=== PATIENT | male | born 1965 | race Native Hawaiian/Other Pacific Islander ===

== ENCOUNTER 2019-03-05 11:18 | Emergency (ER) | payer BC ==
[2019-03-05] MEDS ORDERED: hydrALAZINE HCL 20 MG/ML 1 ML VIAL IVP STA ×2 (11:51→13:16)
[2019-03-05] MEDS ORDERED: SODIUM CHLORIDE 0.9% 1,000 ML IV STA (11:51)
[2019-03-05 12:33] LABS: Basophils # (A) 0.1 k/uL (0-0.2); Basophils % (A) 1 %; Eosinophils # (A) 0.2 k/uL (0-0.7); Eosinophils % (A) 2 %; HCT 49.5 % (39.0-53.0); HGB 16.4 gm/dL (13.0-17.5); Lymphocytes # (A) 1.7 k/uL (1.0-4.8); Lymphocytes % (A) 24 %; MCH 29.4 pg (25.0-35.0); MCHC 33.1 g/dL (31.0-37.0); Monocytes # (A) 0.4 k/uL (0-1.0); Monocytes % (A) 6 %; Neutrophils # (A) 4.8 k/uL (1.3-7.7); Neutrophils % (A) 65 %; Platelet Count 442 k/uL (150-450); RBC 5.57 m/uL (4.30-5.90); RDW 12.8 % (11.5-15.5); WBC 7.3 k/uL (3.8-10.6)
--- NOTE | 2019-03-05 12:43 | ED ---
General Adult HPI - General Chief complaint: Recheck/Abnormal Lab/Rx Stated complaint: High BP Time Seen by Provider: 03/05/19 11:38 Source: patient, RN notes reviewed Mode of arrival: ambulatory Limitations: no limitations - History of Present Illness Initial comments: Patient's a 53-year-old male significant past medical history for hypertension, presented to the emergency room today with a chief complaint of elevated blood pressure. He says he woke up this morning felt that his vision was a little foggy. He states his usual so he got up to wash his face. Patient does admit that when he stood up he felt dizzy. He states unsteady on his feet. Patient admits that these symptoms have improved and is feeling better. Decided check his blood pressure at home his blood pressure was elevated with systolic greater than 200/100. Patient does admit that he does not believe that he took his blood pressure medication last night. He states is on losartan and Norvasc. Patient does admit that he did have the blood pressure medication raised a few months ago was still elevated. States he has not been back to his family doctor because his been busy working. Patient does admit to feeling some numbness and tingling sensation down to the left fingertips along with some numbness to the left cheek area. Patient denies any other complaints or symptoms currently. Patient denies any recent fever, chills, shortness of breath, chest pain, back p ain, abdominal pain, nausea or vomiting, numbness or tingling, headaches or visual changes, or any other complaints. - Related Data Home Medications Medication Instructions Recorded Confirmed Aspirin EC [Ecotrin] 325 mg PO DAILY PRN 09/08/16 03/05/19 glipiZIDE [Glucotrol] 10 mg PO HS 09/08/16 03/05/19 metFORMIN HCL [metFORMIN HCL ER] 1,000 mg PO HS 09/08/16 03/05/19 Pioglitazone [Actos] 45 mg PO HS 09/28/17 03/05/19 Losartan [Cozaar] 100 mg PO HS 03/05/19 03/05/19 amLODIPine BESYLATE [Norvasc] 5 mg PO HS 03/05/19 03/05/19 Allergies Allergy/AdvReac Type Severity Reaction Status Date / Time No Known Allergies Allergy Verified 03/05/19 11:55 Review of Systems ROS Statement: Those systems with pertinent positive or pertinent negative responses have been documented in the HPI. ROS Other: All systems not noted in ROS Statement are negative. Past Medical History Past Medical History: Diabetes Mellitus, Hypertension History of Any Multi-Drug Resistant Organisms: None Reported Past Surgical History: No Surgical Hx Reported Additional Past Surgical History / Comment(s): DENTAL PROCEDURES Past Anesthesia/Blood Transfusion Reactions: Motion Sickness Additional Past Anesthesia/Blood Transfusion Reaction / Comment(s): NEVER HAD GENERAL AA Past Psychological History: No Psychological Hx Reported Smoking Status: Former smoker Past Alcohol Use History: Daily Past Drug Use History: None Reported - Past Family History Mother Family Medical History: Hypertension Additional Family Medical History / Comment(s): MIGRAINES Father Additional Family Medical History / Comment(s): DID FROM A BRAIN ANUERYSM Sister(s) Additional Family Medical History / Comment(s): PTS. SISTER ALSO FROM AN ANUERYSM General Exam - General Exam Comments Initial Comments: General: The patient is awake and alert, in no distress, and does not appear acutely ill. Eye: Pupils are equal, round and reactive to light, extra-ocular movements are intact. No nystagmus. There is normal conjunctiva bilaterally. No signs of icterus. Ears, nose, mouth and throat: There are moist mucous membranes and no oral le sions. Neck: The neck is supple, there is no tenderness or JVD. Cardiovascular: There is a regular rate and rhythm. No murmur, rub or gallop is appreciated. Respiratory: Lungs are clear to auscultation, respirations are non-labored, breath sounds are equal. No wheezes, stridor, rales, or rhonchi. Musculoskeletal: Normal ROM, no tenderness. Strength 5/5. Sensation intact. Pulses equal bilaterally 2+. Neurological: A&O x 3. CN II-XII intact, There are no obvious motor or sensory deficits. Coordination appears grossly intact. Speech is normal. Normal finger to nose testing. Normal rapid alternating movements. Strength 5/5 bilaterally in both upper and lower extremities. Normal gait. Normal tandem walking. Negative Romberg's. Skin: Skin is warm and dry and no rashes or lesions are noted. Psychiatric: Cooperative, appropriate mood & affect, normal judgment. Limitations: no limitations Course Vital Signs 03/05/19 03/05/19 03/05/19 11:34 12:30 13:00 Temperature 98.1 F Pulse Rate 76 73 Respiratory 20 Rate Blood Pressure 222/137 208/154 196/120 O2 Sat by Pulse 99 98 Oximetry 03/05/19 03/05/19 03/05/19 13:08 13:30 14:00 Temperature Pulse Rate 76 80 75 Respiratory 18 Rate Blood Pressure 197/106 193/107 226/117 O2 Sat by Pulse 98 98 98 Oximetry 03/05/19 03/05/19 14:30 14:43 Temperature Pulse Rate 92 Respiratory 18 Rate Blood Pressure 212/110 174/98 O2 Sat by Pulse 98 Oximetry EKG Findings - EKG Comments: EKG Findings:: EKG performed at 427: Shows normal sinus rhythm at 74 bpm. AR interval 180. QRS 82. QT/QTC 388/430. No acute ST change. Medical Decision Making - Medical Decision Making Case discussed in detail with attending physician Dr. Donovan. Patient was given 2 doses of hydralazine which didn't improve his blood pressure. Patient's blood pressure remained somewhat elevated was given dose of labetalol which improved his blood pressure is currently 170/96. Patient reexamined at the central no signs of distress. Patient's blood pressure has improved. Patient states all symptoms have improved. Patient states is been up to the bathroom said no dizziness. Is feeling better at this time. Patient will be discharged home. He is advised to follow-up the family doctor advised take his blood pressure medication tonight. Patient states he plans to see his doctor tomorrow. Advised return here to the emergency room if any symptoms increase or worsen or for any other concerns. - Lab Data Result diagrams: 03/05/19 12:15 03/05/19 12:15 Lab Results 03/05/19 03/05/19 03/05/19 Range/Units 12:15 12:15 12:15 WBC 7.3 (3.8-10.6) k/uL RBC 5.57 (4.30-5.90) m/uL Hgb 16.4 (13.0-17.5) gm/dL Hct 49.5 (39.0-53.0) % MCV 89.0 (80.0-100.0) fL MCH 29.4 (25.0-35.0) pg MCHC 33.1 (31.0-37.0) g/dL RDW 12.8 (11.5-15.5) % Plt Count 442 (150-450) k/uL Neutrophils % 65 % Lymphocytes % 24 % Monocytes % 6 % Eosinophils % 2 % Basophils % 1 % Neutrophils # 4.8 (1.3-7.7) k/uL Lymphocytes # 1.7 (1.0-4.8) k/uL Monocytes # 0.4 (0-1.0) k/uL Eosinophils # 0.2 (0-0.7) k/uL Basophils # 0.1 (0-0.2) k/uL Sodium 138 (137-145) mmol/L Potassium 4.2 (3.5-5.1) mmol/L Chloride 101 (98-107) mmol/L Carbon Dioxide 24 (22-30) mmol/L Anion Gap 13 mmol/L BUN 14 (9-20) mg/dL Creatinine 1.19 (0.66-1.25) mg/dL Est GFR (CKD-EPI)AfAm 80 (>60 ml/min/1.73 sqM) Est GFR (CKD-EPI)NonAf 69 (>60 ml/min/1.73 sqM) Glucose 332 H (74-99) mg/dL Calcium 10.3 H (8.4-10.2) mg/dL Total Bilirubin 0.6 (0.2-1.3) mg/dL AST 21 (17-59) U/L ALT 16 L (21-72) U/L Alkaline Phosphatase 127 H (38-126) U/L Troponin I <0.012 (0.000-0.034) ng/mL Total Protein 8.3 H (6.3-8.2) g/dL Albumin 4.7 (3.5-5.0) g/dL Disposition Clinical Impression: Elevated blood pressure reading, Paresthesia Disposition: HOME SELF-CARE Condition: Good Instructions (If sedation given, give patient instructions): Hypertension (ED) Additional Instructions: Please use your blood pressure medication tonight as discussed and follow-up the family doctor tomorrow. Return here to emergency room if any symptoms increase worsen or for any other concerns. Is patient prescribed a controlled substance at d/c from ED?: No Referrals: Sydnie Mensah MD [Primary Care Provider] - 1-2 days Time of Disposition: 14:58
[2019-03-05 12:49] LABS: Albumin 4.7 g/dL (3.5-5.0); Calcium 10.3 mg/dL (8.4-10.2); Potassium 4.2 mmol/L (3.5-5.1); Total Bilirubin 0.6 mg/dL (0.2-1.3); Total Protein 8.3 g/dL (6.3-8.2)
[2019-03-05 13:10] VITALS: RESP 18
--- NOTE | 2019-03-05 13:12 | CT ---
EXAMINATION TYPE: CT brain wo con DATE OF EXAM: 03/05/2019 COMPARISON: 09/28/2017 HISTORY: Hypertension, visual disturbance. Pt states he thinks he forgot to take blood pressure medic ine last night. CT DLP: 1070.4 mGycm. Automated Exposure Control for Dose Reduction was Utilized. TECHNIQUE: CT scan of the head is performed without contrast. FINDINGS: There is no acute intracranial hemorrhage, mass effect, or midline shift identified. Dyst rophic calcifications of the bilateral basal ganglia are incidentally noted. The ventricles and sulci are within normal limits in size. Very minimal periventricular hypoattenuation is seen of the fronta l horns of the lateral ventricles. Left parietal patchy area of hypoattenuation is also seen within t he [facility] [facility]. The globes are intact and the visualized sinuses are clear. IMPRESSION: 1. No acute intracranial hemorrhage, mass effect, or midline shift is seen. 2. Mild burden nonspecific white matter change, likely on the basis of chronic microangiopathy.
[2019-03-05] MEDS ORDERED: LABETALOL SYRINGE 5 MG/ML IVP STA (14:17)
[2019-03-05 15:15] VITALS: BP 177/93; PULSE 77; TEMP 97.8
== END 2019-03-05 15:14 | disposition home or self-care (01) ==
LOC: EC 11:18
DX: I10 Essential (primary) hypertension (principal); R20.2 Paresthesia of skin; E11.9 Type 2 diabetes mellitus without complications; Z79.84 Long term (current) use of oral hypoglycemic drugs; Z79.82 Long term (current) use of aspirin; Z79.899 Other long term (current) drug therapy; Z87.891 Personal history of nicotine dependence
CPT/HCPCS: 36415; 93005; 80053; 84484; 85025; 70450; 99284; 96374; 96375; 96376; 96361 ×2; J0360

== ENCOUNTER → 2019-04-08 | Outpatient (CLI) | payer BC | END | disposition home or self-care (01) | LOC: LABWHC1 17:05 | PROVIDERS: ATTEND Urology | DX: R97.20 Elevated prostate specific antigen [PSA] (principal) | CPT/HCPCS: 36415; 84153; 84154 ==

== ENCOUNTER 2020-07-29 21:50 | Inpatient (IN) | payer BC, OTHER ==
[2020-07-29] MEDS ORDERED: IPRATROPIUM-ALBUTEROL 3 ML NEB INHALATION STA (22:00)
--- NOTE | 2020-07-29 22:01 | ED ---
SOB HPI - General Chief Complaint: Shortness of Breath Stated Complaint: SOB Time Seen by Provider: 07/29/20 22:00 Source: patient, RN notes reviewed, old records reviewed Mode of arrival: ambulatory Limitations: no limitations - History of Present Illness Initial Comments: This is a 34-year-old male DF for evaluation severe shortness of breath and inab ility to get deep breath feels like his for fluid feels that his belly is fluid/fluid his legs are for facility can't catch his breath. Patient has history of high blood pressure heart disease history of alcoholism. No travel history or sick contacts patient is does not feel well active low severely diminished but no chest pain MD Complaint: shortness of breath -: days(s), month(s) Severity: mild Severity scale (1-10): 3 Consistency: constant Improves With: nothing, rest Worsens With: exertion, movement, coughing Known History Of: congestive heart failure Associated Symptoms: orthopnea, palpitations, diaphoresis Treatments Prior to Arrival: none - Related Data Home Medications Medication Instructions Recorded Confirmed No Known Home Medications 07/29/20 07/29/20 Allergies Allergy/AdvReac Type Severity Reaction Status Date / Time No Known Allergies Allergy Verified 07/29/20 23:27 Review of Systems ROS Statement: Those systems with pertinent positive or pertinent negative responses have been documented in the HPI. ROS Other: All systems not noted in ROS Statement are negative. Past Medical History Past Medical History: Diabetes Mellitus, Hypertension History of Any Multi-Drug Resistant Organisms: None Reported Past Surgical History: No Surgical Hx Reported Additional Past Surgical History / Comment(s): DENTAL PROCEDURES Past Anesthesia/Blood Transfusion Reactions: Motion Sickness Additional Past Anesthesia/Blood Transfusion Reaction / Comment(s): NEVER HAD GENERAL AA Past Psychological History: No Psychological Hx Reported Smoking Status: Never smoker Past Alcohol Use History: Daily Past Drug Use History: Marijuana - Past Family History Mother Family Medical History: Hypertension Additional Family Medical History / Comment(s): MIGRAINES Father Additional Family Medical History / Comment(s): DID FROM A BRAIN ANUERYSM Sister(s) Additional Family Medical History / Comment(s): PTS. SISTER ALSO FROM AN ANUERYSM General Exam Limitations: no limitations General appearance: alert, in no apparent distress, anxious Head exam: Present: atraumatic, normocephalic, normal inspection Eye exam: Present: normal appearance, PERRL, EOMI. Absent: scleral icterus, conjunctival injection, periorbital swelling ENT exam: Present: normal exam, mucous membranes moist Neck exam: Present: normal inspection. Absent: tenderness, meningismus, lymphadenopathy Respiratory exam: Present: rales, accessory muscle use, decreased breath sounds, prolonged expiratory. Absent: respiratory distress, wheezes, rhonchi, stridor Cardiovascular Exam: Present: normal rhythm, tachycardia, normal heart sounds. Absent: systolic murmur, diastolic murmur, rubs, gallop, clicks GI/Abdominal exam: Present: soft, normal bowel sounds. Absent: distended, ten derness, guarding, rebound, rigid Extremities exam: Present: normal inspection, full ROM, normal capillary refill. Absent: tenderness, pedal edema, joint swelling, calf tenderness Back exam: Present: normal inspection Neurological exam: Present: alert, oriented X3, CN II-XII intact Psychiatric exam: Present: normal affect, normal mood Skin exam: Present: warm, dry, intact, normal color. Absent: rash Course Vital Signs 07/29/20 07/29/20 07/29/20 21:53 22:15 22:21 Temperature 98.0 F Pulse Rate 118 H 72 74 Respiratory 24 Rate Blood Pressure 208/127 O2 Sat by Pulse 96 Oximetry 07/29/20 07/29/20 07/30/20 22:44 22:48 00:00 Temperature Pulse Rate 115 H 107 H Respiratory 22 18 22 Rate Blood Pressure 190/136 173/121 O2 Sat by Pulse 97 99 Oximetry 07/30/20 07/30/20 00:15 00:30 Temperature 98.2 F Pulse Rate 79 80 Respiratory 16 18 Rate Blood Pressure 141/105 143/112 O2 Sat by Pulse 98 99 Oximetry - Reevaluation(s) Reevaluation #1: Medical record is reviewed Patient is reevaluated in no distress no significant shortness of breath on oxygen Patient denies current chest pain Patient informed of results and questions answered Medical Decision Making - Medical Decision Making 34 male with significant history of heart disease hypertensive emergency severely elevated blood pressure elevated troponin. Patient will be admitted for hemodynamic monitoring of cardiac evaluation - Lab Data Result diagrams: 07/30/20 03:37 07/30/20 03:37 Lab Results 07/29/20 07/29/20 07/29/20 Range/Units 22:29 22:29 22:29 WBC 10.5 (3.8-10.6) k/uL RBC 5.14 (4.30-5.90) m/uL Hgb 15.6 (13.0-17.5) gm/dL Hct 47.2 (39.0-53.0) % MCV 91.9 (80.0-100.0) fL MCH 30.4 (25.0-35.0) pg MCHC 33.1 (31.0-37.0) g/dL RDW 12.6 (11.5-15.5) % Plt Count 468 H (150-450) k/uL Neutrophils % 75 % Lymphocytes % 18 % Monocytes % 4 % Eosinophils % 2 % Basophils % 1 % Neutrophils # 7.9 H (1.3-7.7) k/uL Lymphocytes # 1.8 (1.0-4.8) k/uL Monocytes # 0.4 (0-1.0) k/uL Eosinophils # 0.2 (0-0.7) k/uL Basophils # 0.1 (0-0.2) k/uL PT 9.7 (9.0-12.0) sec INR 0.9 (<1.2) APTT 25.8 (22.0-30.0) sec Sodium 132 L (137-145) mmol/L Potassium 4.0 (3.5-5.1) mmol/L Chloride 101 (98-107) mmol/L Carbon Dioxide 21 L (22-30) mmol/L Anion Gap 10 mmol/L BUN 18 (9-20) mg/dL Creatinine 0.99 (0.66-1.25) mg/dL Est GFR (CKD-EPI)AfAm >90 (>60 ml/min/1.73 sqM) Est GFR (CKD-EPI)NonAf 85 (>60 ml/min/1.73 sqM) Glucose 431 H (74-99) mg/dL Plasma Lactic Acid Sam (0.7-2.0) mmol/L Calcium 9.8 (8.4-10.2) mg/dL Magnesium 2.0 (1.6-2.3) mg/dL Total Bilirubin 0.8 (0.2-1.3) mg/dL AST 35 (17-59) U/L ALT 23 (4-49) U/L Alkaline Phosphatase 170 H (38-126) U/L Troponin I (0.000-0.034) ng/mL NT-Pro-B Natriuret Pep pg/mL Total Protein 7.4 (6.3-8.2) g/dL Albumin 3.9 (3.5-5.0) g/dL 07/29/20 07/29/20 07/29/20 Range/Units 22:29 22:29 22:29 WBC (3.8-10.6) k/uL RBC (4.30-5.90) m/uL Hgb (13.0-17.5) gm/dL Hct (39.0-53.0) % MCV (80.0-100.0) fL MCH (25.0-35.0) pg MCHC (31.0-37.0) g/dL RDW (11.5-15.5) % Plt Count (150-450) k/uL Neutrophils % % Lymphocytes % % Monocytes % % Eosinophils % % Basophils % % Neutrophils # (1.3-7.7) k/uL Lymphocytes # (1.0-4.8) k/uL Monocytes # (0-1.0) k/uL Eosinophils # (0-0.7) k/uL Basophils # (0-0.2) k/uL PT (9.0-12.0) sec INR (<1.2) APTT (22.0-30.0) sec Sodium (137-145) mmol/L Potassium (3.5-5.1) mmol/L Chloride (98-107) mmol/L Carbon Dioxide (22-30) mmol/L Anion Gap mmol/L BUN (9-20) mg/dL Creatinine (0.66-1.25) mg/dL Est GFR (CKD-EPI)AfAm (>60 ml/min/1.73 sqM) Est GFR (CKD-EPI)NonAf (>60 ml/min/1.73 sqM) Glucose (74-99) mg/dL Plasma Lactic Acid Sam 1.4 (0.7-2.0) mmol/L Calcium (8.4-10.2) mg/dL Magnesium (1.6-2.3) mg/dL Total Bilirubin (0.2-1.3) mg/dL AST (17-59) U/L ALT (4-49) U/L Alkaline Phosphatase (38-126) U/L Troponin I 1.850 H* (0.000-0.034) ng/mL NT-Pro-B Natriuret Pep 8660 pg/mL Total Protein (6.3-8.2) g/dL Albumin (3.5-5.0) g/dL - EKG Data -: EKG Interpreted by Me (EKG is sinus tachycardia 110 MN 166 QRS 82 QTC 470) - Radiology Data Radiology results: report reviewed (Chest x-rays positive for CHF), image reviewed Critical Care Time Critical Care Time: Yes Total Critical Care Time: 31 Disposition Clinical Impression: Congestive heart failure, Weakness, Hypertensive urgency, Hypertension, Hypertensive emergency, Acute pulmonary edema, NSTEMI (non-ST elevated myocardial infarction) Disposition: ADMITTED IP TO THIS HOSP Condition: Fair
[2020-07-29 22:45] LABS: Basophils # (A) 0.1 k/uL (0-0.2); Basophils % (A) 1 %; Eosinophils # (A) 0.2 k/uL (0-0.7); Eosinophils % (A) 2 %; HCT 47.2 % (39.0-53.0); HGB 15.6 gm/dL (13.0-17.5); Lymphocytes # (A) 1.8 k/uL (1.0-4.8); Lymphocytes % (A) 18 %; MCH 30.4 pg (25.0-35.0); MCHC 33.1 g/dL (31.0-37.0); MCV 91.9 fL (80.0-100.0); Mean Platelet Volume 7.8; Monocytes # (A) 0.4 k/uL (0-1.0); Monocytes % (A) 4 %; Neutrophils # (A) 7.9 k/uL (1.3-7.7); Neutrophils % (A) 75 %; Platelet Count 468 k/uL (150-450); RBC 5.14 m/uL (4.30-5.90); RDW 12.6 % (11.5-15.5); WBC 10.5 k/uL (3.8-10.6)
[2020-07-29] MEDS ORDERED: FUROSEMIDE 10 MG/ML 4 ML VIAL IV STA (22:52)
[2020-07-29] MEDS ORDERED: LABETALOL 5 MG/ML VIAL MDV IVP STA (22:52)
[2020-07-29 22:53] LABS: INR 0.9 (<1.2); Partial Thromboplastin Time 25.8 sec (22.0-30.0); Prothrombin Time 9.7 sec (9.0-12.0)
[2020-07-29 22:58] LABS: ALT 23 U/L (4-49); AST 35 U/L (17-59); African American GFR (CKD) >90 (>60 ml/min/1.73 sqM); Albumin 3.9 g/dL (3.5-5.0); Alkaline Phosphatase 170 U/L (38-126); Anion Gap 10 mmol/L; Blood Urea Nitrogen 18 mg/dL (9-20); Calcium 9.8 mg/dL (8.4-10.2); Carbon Dioxide 21 mmol/L (22-30); Chloride 101 mmol/L (98-107); Glucose 431 mg/dL (74-99); Non-African American GFR(CKD) 85 (>60 ml/min/1.73 sqM); Sodium 132 mmol/L (137-145); Total Bilirubin 0.8 mg/dL (0.2-1.3); Total Protein 7.4 g/dL (6.3-8.2)
[2020-07-29] MEDS ORDERED: HEPARIN SODIUM,PORCINE 5,000 UNIT/ML 1 ML VIAL IV ONE (23:12)
[2020-07-29] MEDS ORDERED: FUROSEMIDE 10 MG/ML 4 ML VIAL IV SCH (23:15)
--- NOTE | 2020-07-29 23:49 | XR ---
EXAMINATION TYPE: XR abdomen acute w cxr DATE OF EXAM: 07/29/2020 COMPARISON: NONE HISTORY: Pain TECHNIQUE: 3 views FINDINGS: There is no sign of intestinal obstruction or pneumoperitoneum. Fecal pattern is normal. Th ere is no evidence of a mass. There are no pathologic calcifications. There are bilateral pleural effusions and patchy infiltrates in the lower lung [place]. There is mild pulmonary congestion. Heart size is fairly normal. IMPRESSION: Nonacute abdomen. Pleural effusions and bilateral patchy pneumonia. Congestive heart fail ure not excluded.
[2020-07-30] MEDS: HEPARIN SOD,PORK IN 0.45% NACL 25,000 UNIT in 0.45% NACL 1 250ML.BAG IV SCH ×2 (00:17→14:50)
[2020-07-30 00:52] LABS: Glucose,Whole Blood 377 mg/dL (75-99)
[2020-07-30 04:13] LABS: Basophils # (A) 0.1 k/uL (0-0.2); Basophils % (A) 1 %; Eosinophils # (A) 0.1 k/uL (0-0.7); Eosinophils % (A) 1 %; HCT 42.3 % (39.0-53.0); HGB 13.8 gm/dL (13.0-17.5); Lymphocytes # (A) 1.7 k/uL (1.0-4.8); Lymphocytes % (A) 22 %; MCH 30.1 pg (25.0-35.0); MCHC 32.6 g/dL (31.0-37.0); MCV 92.3 fL (80.0-100.0); Mean Platelet Volume 7.9; Monocytes # (A) 0.4 k/uL (0-1.0); Monocytes % (A) 5 %; Neutrophils # (A) 5.6 k/uL (1.3-7.7); Neutrophils % (A) 71 %; Platelet Count 397 k/uL (150-450); RBC 4.58 m/uL (4.30-5.90); RDW 12.5 % (11.5-15.5); WBC 7.9 k/uL (3.8-10.6)
[2020-07-30 04:20] LABS: Partial Thromboplastin Time 41.3 sec (22.0-30.0); Prothrombin Time 10.1 sec (9.0-12.0)
[2020-07-30 04:25] LABS: ALT 22 U/L (4-49); AST 49 U/L (17-59); African American GFR (CKD) >90 (>60 ml/min/1.73 sqM); Albumin 3.3 g/dL (3.5-5.0); Alkaline Phosphatase 142 U/L (38-126); Anion Gap 7 mmol/L; Blood Urea Nitrogen 18 mg/dL (9-20); Carbon Dioxide 26 mmol/L (22-30); Chloride 100 mmol/L (98-107); Glucose 372 mg/dL (74-99); Non-African American GFR(CKD) 81 (>60 ml/min/1.73 sqM); Potassium 3.7 mmol/L (3.5-5.1); Sodium 133 mmol/L (137-145); Total Bilirubin 0.8 mg/dL (0.2-1.3); Total Protein 6.3 g/dL (6.3-8.2)
[2020-07-30] MEDS: HEPARIN SODIUM,PORCINE 5,000 UNIT/ML 1 ML VIAL IV PRN ×2 (05:09→22:08)
[2020-07-30 06:59] LABS: Glucose,Whole Blood 343 mg/dL (75-99)
[2020-07-30] MEDS: INSULIN ASPART (NovoLOG) 100 UNIT/ML VIAL SQ SCH ×4 (07:10→21:42)
[2020-07-30] MEDS ORDERED: NITROGLYCERIN-D5W PMX 50 MG in DEXTROSE/WATER 1 250ML.BAG IV SCH (08:30)
--- NOTE | 2020-07-30 09:23 | XR ---
EXAMINATION TYPE: XR chest 1V DATE OF EXAM: 07/30/2020 CLINICAL HISTORY: Shortness of breath and cough. TECHNIQUE: Single AP portable frontal upright view of the chest is obtained. COMPARISON: Chest x-ray from yesterday end older x-rays. FINDINGS: There are stable small bilateral pleural effusions. There are persistent perihilar and bib asilar opacities. The cardiac silhouette size remains within normal limits. The osseous structures are intact. IMPRESSION: Overall stable findings, small bilateral pleural effusions. Bilateral perihilar and lower lung edema and/or infiltrates redemonstrated.
[2020-07-30] MEDS: FUROSEMIDE 10 MG/ML 4 ML VIAL IV SCH ×2 (09:25→14:55)
[2020-07-30] MEDS: METOPROLOL TARTRATE 25 MG TAB PO SCH ×2 (09:27→21:39)
[2020-07-30] MEDS: lisinopriL 5 MG TAB PO SCH (09:27)
[2020-07-30] MEDS: ASPIRIN 81 MG PO SCH (09:28)
[2020-07-30] MEDS: ATORVASTATIN 40 MG TAB PO SCH (09:28)
[2020-07-30] MEDS ORDERED: ALPRAZolam 0.5 MG TAB PO PRN (09:45)
[2020-07-30] MEDS ORDERED: SODIUM CHLORIDE 0.9% 1,000 ML in EMPTY BAG 1 BAG IV ONE (09:45)
[2020-07-30] MEDS ORDERED: NITROGLYCERIN SL TABS 0.4 MG TAB SUBLINGUAL PRN ×2 (09:45→11:58)
[2020-07-30] MEDS ORDERED: ASPIRIN 81 MG PO STA (09:45)
[2020-07-30] MEDS ORDERED: ALPRAZolam 0.25 MG TAB PO PRN (09:45)
[2020-07-30] MEDS ORDERED: LIDOCAINE 1% INJ 10MG/ML (20 ML MDV) ONE (10:00)
[2020-07-30] MEDS ORDERED: VERAPAMIL 2.5 MG/ML 2 ML AMP ONE (10:27)
[2020-07-30] MEDS ORDERED: ASPIRIN 81 MG ONE (10:27)
[2020-07-30] MEDS ORDERED: HEPARIN SODIUM 1,000 UN/ML (10ML VL) ONE (10:28)
[2020-07-30] MEDS ORDERED: fentaNYL (PF) 50 MCG/ML 2 ML AMP ONE (10:28)
--- NOTE | 2020-07-30 10:33 | P.CRDCN ---
History of Present Illness History of present illness: has been feeling short of breath for the previous 3 weeks. orthopnea and unable to sleep for the last 2 days so came to er for evaluation. no chest pain. HISTORY OF PRESENTING ILLNESS This is a pleasant 54-year-old male past medical history significant for hypertension, diabetes mellitus, former nicotine dependence and history of medical noncompliance. 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 He last saw Dr. Ramos in April 2016. At that time he was recommended for stress test and echocardiogram but never came back to the office. He did have an echo done in the hospital 08/2016 revealing impaired LV systolic function with EF 40-45%, possible infiltrative cardiomyopathy. He states his blood pressure and diabetic medication were making him feel increasingly tired so he stopped taking them around February of this year. For the past 3 weeks he has been experiencing increased shortness of breath. Initially he felt like he just had to take a break every once in awhile but it has been getting progressively worse. For the last 2 nights he has not been able to lay flat or get any sleep. He is coughing when he lays flat and short of breath. He also feels like his abdomen is bloated and full not allowing him to take a deep breath. He denies chest pain, dizziness, nausea, vomiting or palpitations. In the emergency department he was initiated on a heparin infusion and given IV labetalol. No aspirin was administered. DIAGNOSTICS EKG reveals sinus tachycardia heart rate 110, T-wave inversion laterally and inferiorly. Poor R-wave progression and left atrial enlargement. Chest xray small bilateral pleural effusions. Laboratory reviewed, WBC 7.9, hemoglobin 13.8, platelets 397, sodium 133, potassium 3.7, creatinine 1.04 with a GFR of 81, magnesium 2.0, alkaline phosphatase 142, troponin 1.85, 2.42 and 6.36. We requested a stat repeat during her examination and that level came back at 29, NT proBNP 8660. REVIEW OF SYSTEMS At the time of my exam: CONSTITUTIONAL: Denies fever or chills. CARDIOVASCULAR: Denies chest pain, shortness of breath, orthopnea, PND or palpitations. RESPIRATORY: Denies cough. GASTROINTESTINAL: Denies abdominal pain, diarrhea, constipation, nausea or vomiting. MUSCULOSKELETAL: Denies myalgias. NEUROLOGIC: Denies numbness, tingling or weakness. ENDOCRINE: Denies fatigue, weight change, polydipsia or polyurina. GENITOURINARY: Denies burning, hematuria or urgency with micturation. HEMATOLOGIC: Denies history of anemia or bleeding. PHYSICAL EXAMINATION Blood pressure 145/102 heart rate 93 afebrile and maintaining oxygen saturation on nasal cannula. CONSTITUTIONAL: No apparent distress. HEENT: Head is normocephalic. Pupils are equal, round. Sclerae anicteric. Mucous membranes of the mouth are moist. No JVD. No carotid bruit. CHEST EXAMINATION: Tachypneic, bibasrilar rales, no wheezes or rhonchi. No chest wall tenderness is noted on palpation or with deep breathing. HEART EXAMINATION: Regular rate and rhythm. S1, S2 heard. No murmurs, gallops or rub. ABDOMEN: Soft, nontender. Positive bowel sounds. EXTREMITIES: 2+ peripheral pulses, no lower extremity edema and no calf tenderness. NEUROLOGIC EXAMINATION: Patient is awake, alert and oriented x3. 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 Will update after catheterization Chronic systolic heart failure, non-compliant with medications Non-compliance History of alcohol use, pt states every week, not daily PLAN Echocardiogram obtained and briefly reviewed at the bedside, LV function has significantly worsened from previously. Recommend proceeding with cardiac catheterization. I have discussed the risks, benefits and alternative therapies for the above-mentioned procedure and for both sedation/analgesia as well as necessary blood product administration, if indicated, as they pertain to this patient. The patient has indicated understanding and acceptance of the risks and procedures discussed. Questions have been answered appropriately and he is agreeable to move forward with the above-stated procedure. Initiate nitro infusion and titrate for blood pressure. Initiate lisinopril 5 mg daily, atorvastatin 40 mg daily, aspirin 81 mg daily and continue Lopressor 25 mg twice a day as previously ordered in the emergency center. Further recommendations to follow based upon clinical course. Thank you kindly for this consultation. Nurse Practitioner note has been reviewed, I agree with a documented findings and plan of care. Patient was seen and examined. Past Medical History Past Medical History: Diabetes Mellitus, Hypertension History of Any Multi-Drug Resistant Organisms: None Reported Past Surgical History: No Surgical Hx Reported Additional Past Surgical History / Comment(s): DENTAL PROCEDURES Past Anesthesia/Blood Transfusion Reactions: Motion Sickness Additional Past Anesthesia/Blood Transfusion Reaction / Comment(s): NEVER HAD GENERAL AA Past Psychological History: No Psychological Hx Reported Smoking Status: Never smoker Past Alcohol Use History: Daily Additional Past Alcohol Use History / Comment(s): PT. STATES HE HAS CIGARS OCCASSIONALLY Past Drug Use History: Marijuana - Past Family History Mother Family Medical History: Hypertension Additional Family Medical History / Comment(s): MIGRAINES Father Additional Family Medical History / Comment(s): DID FROM A BRAIN ANUERYSM Sister(s) Additional Family Medical History / Comment(s): PTS. SISTER ALSO FROM AN ANUERYSM Medications and Allergies Home Medications Medication Instructions Recorded Confirmed Type No Known Home Medications 07/29/20 07/29/20 History Allergies Allergy/AdvReac Type Severity Reaction Status Date / Time No Known Allergies Allergy Verified 07/29/20 23:27 Physical Exam Vitals: Vital Signs Temp Pulse Resp BP Pulse Ox 07/30/20 07:00 91 28 H 97 07/30/20 06:00 86 24 140/105 97 07/30/20 05:00 84 13 129/92 98 07/30/20 04:00 98 F 82 13 129/92 97 07/30/20 03:00 82 14 135/103 97 07/30/20 02:00 85 24 144/109 96 07/30/20 01:00 97.8 F 82 27 H 148/118 98 07/30/20 00:30 98.2 F 80 18 143/112 99 07/30/20 00:15 79 16 141/105 98 07/30/20 00:00 107 H 22 173/121 99 07/29/20 22:48 115 H 18 190/136 97 07/29/20 22:44 22 07/29/20 22:21 74 07/29/20 22:15 72 07/29/20 21:53 98.0 F 118 H 24 208/127 96 Intake and Output 07/29/20 07/30/20 07/30/20 22:59 06:59 14:59 Intake Total 378.805 Output Total 700 Balance -321.195 Intake: IV 140 0.9 NS @KVO 140 Intake, IV Titration 38.805 Amount Heparin Sod,Pork in 0.45% 38.805 NaCl 25,000 unit In 0.45 % NaCl 1 250ml.bag @ 12 UNITS/KG/HR 8.001 mls/hr IV .Q24H [facility] Rx#: [id number] Oral 200 Output: Urine 700 Other: Weight 66.678 kg 70.5 kg Results 07/30/20 03:37 07/30/20 03:37 Cardiac Enzymes 07/29/20 07/29/20 07/29/20 Range/Units 22:29 22:29 23:51 AST 35 (17-59) U/L Troponin I 1.850 H* 2.420 H* (0.000-0.034) ng/mL 07/30/20 07/30/20 Range/Units 02:04 03:37 AST 49 (17-59) U/L Troponin I 6.360 H* (0.000-0.034) ng/mL Coagulation 07/29/20 07/30/20 Range/Units 22:29 03:37 PT 9.7 10.1 (9.0-12.0) sec APTT 25.8 41.3 H (22.0-30.0) sec CBC 07/29/20 07/30/20 Range/Units 22:29 03:37 WBC 10.5 7.9 (3.8-10.6) k/uL RBC 5.14 4.58 (4.30-5.90) m/uL Hgb 15.6 13.8 (13.0-17.5) gm/dL Hct 47.2 42.3 (39.0-53.0) % Plt Count 468 H 397 (150-450) k/uL Comprehensive Metabolic Panel 07/29/20 07/30/20 Range/Units 22:29 03:37 Sodium 132 L 133 L (137-145) mmol/L Potassium 4.0 3.7 (3.5-5.1) mmol/L Chloride 101 100 (98-107) mmol/L Carbon Dioxide 21 L 26 (22-30) mmol/L BUN 18 18 (9-20) mg/dL Creatinine 0.99 1.04 (0.66-1.25) mg/dL Glucose 431 H 372 H (74-99) mg/dL Calcium 9.8 9.0 (8.4-10.2) mg/dL AST 35 49 (17-59) U/L ALT 23 22 (4-49) U/L Alkaline Phosphatase 170 H 142 H (38-126) U/L Total Protein 7.4 6.3 (6.3-8.2) g/dL Albumin 3.9 3.3 L (3.5-5.0) g/dL Current Medications Generic Name Dose Route Start Last Admin Trade Name Freq PRN Reason Stop Dose Admin Aspirin 81 mg 07/30/20 09:00 Aspirin 81 Mg PO DAILY [facility] Atorvastatin Calcium 40 mg 07/30/20 09:00 Atorvastatin 40 Mg Tab PO DAILY [facility] Furosemide 40 mg 07/30/20 08:00 Furosemide 10 Mg/Ml 4 Ml Vial IV 0000,0800,1600 [facility] Heparin Sodium (Porcine) 0 unit 07/29/20 23:12 07/30/20 05:09 Heparin Sodium,Porcine 5,000 Unit/Ml 1 Ml Vial IV 1,764 unit PER PROTOCOL PRN Administration Low PTT Protocol Heparin Sodium/Sodium Chloride 250 mls @ 8.001 mls/hr 07/29/20 23:15 07/30/20 05:08 25,000 unit/ Sodium Chloride IV 14 units/kg/hr .Q24H JOHN 9.335 mls/hr Titration Protocol 12 UNITS/KG/HR Insulin Aspart 0 unit 07/30/20 07:30 07/30/20 07:10 Insulin Aspart (Novolog) 100 Unit/Ml Vial SQ 6 unit ACHS JOHN Administration Protocol Lisinopril 5 mg 07/30/20 09:00 Lisinopril 5 Mg Tab PO DAILY [facility] Metoprolol Tartrate 25 mg 07/30/20 09:00 Metoprolol Tartrate 25 Mg Tab PO BID JOHN Intake and Output 07/29/20 07/30/20 07/30/20 22:59 06:59 14:59 Intake Total 378.805 Output Total 700 Balance -321.195 Intake: IV 140 0.9 NS @KVO 140 Intake, IV Titration 38.805 Amount Heparin Sod,Pork in 0.45% 38.805 NaCl 25,000 unit In 0.45 % NaCl 1 250ml.bag @ 12 UNITS/KG/HR 8.001 mls/hr IV .Q24H [facility] Rx#: [id number] Oral 200 Output: Urine 700 Other: Weight 66.678 kg 70.5 kg 07/30/20 03:37 07/30/20 03:37
[2020-07-30] MEDS ORDERED: ASPIRIN 81 MG PO ONE (10:40)
[2020-07-30] MEDS ORDERED: IV FLUID CONTINUATION 1,000 ML IV ONE (10:41)
[2020-07-30] MEDS ORDERED: NITROGLYCERIN-D5W PMX 50 MG in DEXTROSE/WATER 1 250ML.BAG IV ONE (10:41)
[2020-07-30] MEDS ORDERED: LIDOCAINE 1% INJ 10MG/ML (20 ML MDV) SQ ONE (10:42)
[2020-07-30] MEDS: VERAPAMIL SYRINGE (5 MG/10 ML) INTRAARTER ONE ×2 (10:42→11:54)
[2020-07-30] MEDS ORDERED: MIDAZOLAM 2 MG/2 ML VIAL IVP ONE (10:43)
[2020-07-30] MEDS ORDERED: fentaNYL (PF) 50 MCG/ML 2 ML AMP IVP ONE (10:43)
[2020-07-30] MEDS ORDERED: HEPARIN SODIUM 1,000 UN/ML (10ML VL) IV ONE ×2 (10:46→11:01)
--- NOTE | 2020-07-30 11:00 | ECHOF ---
Referral Reason:Heart Failure MEASUREMENTS -------- HEIGHT: 170.2 cm WEIGHT: 70.3 kg BP: 140/105 RVIDd: 2.8 cm (< 3.3) IVSd: 1.4 cm (0.6 - 1.1) LVIDd: 5.4 cm (3.9 - 5.3) LVPWd: 1.4 cm (0.6 - 1.1) IVSs: 1.5 cm LVIDs: 4.3 cm LVPWs: 1.9 cm LA Diam: 3.5 cm (2.7 - 3.8) LAESV Index (A-L): 31.29 ml/m Ao Diam: 3.2 cm (2.0 - 3.7) AV Cusp: 1.9 cm (1.5 - 2.6) MV EXCURSION: 16.920 mm (> 18.000) MV EF SLOPE: 107 mm/s (70 - 150) EPSS: 1.3 cm MV E Krishna: 0.93 m/s MV DecT: 161 ms MV A Krishna: 0.46 m/s MV E/A Ratio: 2.04 RAP: 15.00 mmHg RVSP: 49.77 mmHg FINDINGS -------- Sinus rhythm. This was a technically good study. The left ventricular size is normal. There is moderate concentric left ventricular hypertrophy. O verall left ventricular systolic function is severely impaired with, an EF < 20%. There is septal f lattening in diastole and systole which is consistent with right ventricular pressure and volume over load. The right ventricle is normal in size. LA is midly dilated 29-33ml/m2. The right atrium is normal in size. Interatrial and interventricular septum intact. The aortic valve is trileaflet and appears structurally normal. Mild mitral regurgitation is present. Mild tricuspid regurgitation present. There is moderate pulmonary hypertension. The right ventric ular systolic pressure, as measured by Doppler, is 49.77mmHg. There is no pulmonic regurgitation present. Thrombus in LV Malott The aortic root size is normal. The inferior vena cava is dilated with no significant inspiratory collapse which is consistent estima thomas right atrial pressure of >15 mmHg. There is no pericardial effusion. Pleural Effusion with Fibrin. CONCLUSIONS -------- 1. The left ventricular size is normal. 2. There is moderate concentric left ventricular hypertrophy. 3. Overall left ventricular systolic function is severely impaired with, an EF < 20%. 4. There is septal flattening in diastole and systole which is consistent with right ventricular pres sure and volume overload. 5. LA is midly dilated 29-33ml/m2. 6. Mild mitral regurgitation is present. 7. Mild tricuspid regurgitation present. 8. There is moderate pulmonary hypertension. 9. The right ventricular systolic pressure, as measured by Doppler, is 49.77mmHg. 10. Thrombus in LV Malott 11. The inferior vena cava is dilated with no significant inspiratory collapse which is consistent es timated right atrial pressure of >15 mmHg. 12. There is no pericardial effusion. 13. Pleural Effusion with Fibrin. ORAL AND MAXILLOFACIAL SURGEON: Mely Tenorio RDCS
[2020-07-30] MEDS ORDERED: TICAGRELOR 90 MG TAB ONE (11:02)
[2020-07-30] MEDS ORDERED: TICAGRELOR 90 MG TAB PO ONE (11:04)
[2020-07-30] MEDS ORDERED: niCARdipine 25 MG/10 ML VIAL ONE (11:09)
[2020-07-30] MEDS ORDERED: niCARdipine Syringe (1,000 mcg/10 mL) INTRACORON ONE (11:12)
[2020-07-30] MEDS ORDERED: IOPAMIDOL-370 125ML BTL INJ ONE (11:24)
[2020-07-30] MEDS ORDERED: IOPAMIDOL-370 100ML BTL INJ ONE ×2 (11:39→11:47)
[2020-07-30] MEDS ORDERED: niCARdipine Syringe (1,000 mcg/10 mL) INTRAARTER ONE (11:43)
[2020-07-30] MEDS ORDERED: ATROPINE SULFATE 0.1 MG/ML 10ML SYRINGE IV PRN (11:58)
[2020-07-30] MEDS ORDERED: ZOLPIDEM 5 MG TAB PO PRN (11:58)
[2020-07-30] MEDS ORDERED: MAG HYDROX/AL HYDROX/SIMETH 30 ML CUP PO PRN (11:58)
[2020-07-30] MEDS ORDERED: RX INFO: IV CONTRAST WAS GIVEN 1 EACH MISC MISCELLANE PRN (11:58)
--- NOTE | 2020-07-30 16:00 | P.HPIM ---
History of Present Illness This is a pleasant 54-year-old male came in with three-week history of progressive shortness of breath orthopnea, proximal nocturnal dyspnea. Patient is found to have elevated troponins was having mild chest discomfort found to have non-ST elevation microinfarction with the elevated troponin of 21 patient went to the catheterization and stenting to RCA and circumflex. Patient had an echo cardiac exam which showed ejection fraction of 15% patient had a previous ejection fraction of 40-45% in 2016. Patient denied any fever chills. Patient shortness of breath is improving patient and the patient is presently on dual antiplatelet therapy along with the heparin IV Lasix. Patient also has left ventricle thrombus on echocardiogram. A she was complaining of cough without any sputum production, shortness of breath Review of Systems REVIEW OF SYSTEMS: CONSTITUTIONAL: No fever, no malaise, no fatigue. HEENT: No recent visual problems or hearing problems. Denied any sore throat. CARDIOVASCULAR: As mentioned in HPI PULMONARY: no hemoptysis. GASTROINTESTINAL: No diarrhea, no nausea, no vomiting, no abdominal pain. NEUROLOGICAL: No headaches, no weakness, no numbness. HEMATOLOGICAL: Denies any bleeding or petechiae. GENITOURINARY: Denies any burning micturition, frequency, or urgency. MUSCULOSKELETAL/RHEUMATOLOGICAL: Denies any joint pain, swelling, or any muscle pain. ENDOCRINE: Denies any polyuria or polydipsia. The rest of the 14-point review of systems is negative. Past Medical History Past Medical History: Diabetes Mellitus, Hypertension History of Any Multi-Drug Resistant Organisms: None Reported Past Surgical History: No Surgical Hx Reported Additional Past Surgical History / Comment(s): DENTAL PROCEDURES Past Anesthesia/Blood Transfusion Reactions: Motion Sickness Additional Past Anesthesia/Blood Transfusion Reaction / Comment(s): NEVER HAD GENERAL AA Past Psychological History: No Psychological Hx Reported Smoking Status: Never smoker Past Alcohol Use History: Daily Additional Past Alcohol Use History / Comment(s): PT. STATES HE HAS CIGARS OCCASSIONALLY Past Drug Use History: Marijuana - Past Family History Mother Family Medical History: Hypertension Additional Family Medical History / Comment(s): MIGRAINES Father Additional Family Medical History / Comment(s): DID FROM A BRAIN ANUERYSM Sister(s) Additional Family Medical History / Comment(s): PTS. SISTER ALSO FROM AN ANUERYSM Medications and Allergies Home Medications Medication Instructions Recorded Confirmed Type No Known Home Medications 07/29/20 07/29/20 History Allergies Allergy/AdvReac Type Severity Reaction Status Date / Time No Known Allergies Allergy Verified 07/29/20 23:27 Physical Exam Vitals: Vital Signs Temp Pulse Resp BP Pulse Ox 07/30/20 09:30 93 18 145/102 96 07/30/20 09:15 93 17 144/94 95 07/30/20 09:00 94 28 H 156/110 94 L 07/30/20 08:45 95 30 H 156/110 96 07/30/20 08:30 93 23 156/110 97 07/30/20 08:00 18 07/30/20 07:00 91 28 H 97 07/30/20 06:00 86 24 140/105 97 07/30/20 05:00 84 13 129/92 98 07/30/20 04:00 98 F 82 13 129/92 97 07/30/20 03:00 82 14 135/103 97 07/30/20 02:00 85 24 144/109 96 07/30/20 01:00 97.8 F 82 27 H 148/118 98 07/30/20 00:30 98.2 F 80 18 143/112 99 07/30/20 00:15 79 16 141/105 98 07/30/20 00:00 107 H 22 173/121 99 07/29/20 22:48 115 H 18 190/136 97 07/29/20 22:44 22 07/29/20 22:21 74 07/29/20 22:15 72 07/29/20 21:53 98.0 F 118 H 24 208/127 96 Intake and Output 07/30/20 07/30/20 07/30/20 06:59 14:59 22:59 Intake Total 378.805 92.563 Output Total 700 Balance -321.195 92.563 Intake: IV 140 50 0.9 NS @KVO 140 Intake, IV Titration 38.805 42.563 Amount Heparin Sod,Pork in 0.45% 38.805 42.163 NaCl 25,000 unit In 0.45 % NaCl 1 250ml.bag @ 12 UNITS/KG/HR 8.001 mls/hr IV .Q24H [facility] Rx#: [id number] Nitroglycerin-D5w Pmx 50 0.4 mg In Dextrose/Water 1 250ml.bag @ Titrate IV . Q0M [facility] Rx#:[id number] Oral 200 Output: Urine 700 Other: Voiding Method Toilet Urinal Weight 70.5 kg PHYSICAL EXAMINATION: GENERAL: The patient is alert and oriented x3, not in any acute distress. Well developed, well nourished. HEENT: Pupils are round and equally reacting to light. EOMI. No scleral icterus. No conjunctival pallor. Normocephalic, atraumatic. No pharyngeal erythema. No thyromegaly. CARDIOVASCULAR: S1 and S2 present. No murmurs, rubs, or gallops. Does have elevated JVD PULMONARY: Chest is clear to auscultation, no wheezing or crackles. ABDOMEN: Soft, nontender, nondistended, normoactive bowel sounds. No palpable organomegaly. MUSCULOSKELETAL: No joint swelling or deformity. EXTREMITIES: No cyanosis, clubbing, mild 1+ pitting pedal edema NEUROLOGICAL: Gross neurological examination did not reveal any focal deficits. SKIN: No rashes. Results CBC & Chem 7: 07/30/20 03:37 07/30/20 03:37 Labs: Abnormal Lab Results - Last 24 Hours (Table) 07/29/20 07/29/20 07/29/20 Range/Units 22:29 22:29 22:29 Plt Count 468 H (150-450) k/uL Neutrophils # 7.9 H (1.3-7.7) k/uL APTT (22.0-30.0) sec Sodium 132 L (137-145) mmol/L Carbon Dioxide 21 L (22-30) mmol/L Glucose 431 H (74-99) mg/dL POC Glucose (mg/dL) (75-99) mg/dL Alkaline Phosphatase 170 H (38-126) U/L Troponin I 1.850 H* (0.000-0.034) ng/mL Albumin (3.5-5.0) g/dL 07/29/20 07/30/20 07/30/20 Range/Units 23:51 00:50 02:04 Plt Count (150-450) k/uL Neutrophils # (1.3-7.7) k/uL APTT (22.0-30.0) sec Sodium (137-145) mmol/L Carbon Dioxide (22-30) mmol/L Glucose (74-99) mg/dL POC Glucose (mg/dL) 377 H (75-99) mg/dL Alkaline Phosphatase (38-126) U/L Troponin I 2.420 H* 6.360 H* (0.000-0.034) ng/mL Albumin (3.5-5.0) g/dL 07/30/20 07/30/20 07/30/20 Range/Units 03:37 03:37 06:57 Plt Count (150-450) k/uL Neutrophils # (1.3-7.7) k/uL APTT 41.3 H (22.0-30.0) sec Sodium 133 L (137-145) mmol/L Carbon Dioxide (22-30) mmol/L Glucose 372 H (74-99) mg/dL POC Glucose (mg/dL) 343 H (75-99) mg/dL Alkaline Phosphatase 142 H (38-126) U/L Troponin I (0.000-0.034) ng/mL Albumin 3.3 L (3.5-5.0) g/dL 07/30/20 07/30/20 07/30/20 Range/Units 08:26 08:38 13:58 Plt Count (150-450) k/uL Neutrophils # (1.3-7.7) k/uL APTT 159.1 H* 63.5 H (22.0-30.0) sec Sodium (137-145) mmol/L Carbon Dioxide (22-30) mmol/L Glucose (74-99) mg/dL POC Glucose (mg/dL) (75-99) mg/dL Alkaline Phosphatase (38-126) U/L Troponin I 29.300 H* (0.000-0.034) ng/mL Albumin (3.5-5.0) g/dL Thrombosis Risk Factor Assmnt - Choose All That Apply Each Factor Represents 1 point: Age 41-60 years, Heart failure (<1month) Thrombosis Risk Factor Assessment Total Risk Factor Score: 2 Thrombosis Risk Factor Assessment Level: Low Risk Assessment and Plan Plan: -Acute non-ST elevation microinfarction: Patient is status post cardiac catheterization and stenting as mentioned above but will be continued on Dilantin with the therapist at statin and a beta derek -Congestive heart failure patient has both acute and chronic systolic dysfunction acute systolic dysfunction secondary to acute mitral infarction patient is also on acute pulmonary edema and heart failure exacerbation patient is presently on Lasix. Patient is on BELLA inhibitor as well -Left ventricular thrombus for which patient is on heparin for now. -Type 2 diabetes mellitus -Hypertension
--- NOTE | 2020-07-30 17:28 | P.PRCINT ---
Percutaneous Coronary Int. - Percutaneous Coronary Intervention Percutaneous Coronary Intervention: PROCEDURES PERFORMED: Left heart catheterization, bilateral coronary angiography, PCI of mid LAD with 2.5 x 33 mm Xience CHIDI, post dilated with a 3.0 mm NC balloon, PCI of mid OM2 with a 2.25 x 18mm Xience CHIDI, intracoronary nicardipine INDICATION: non-STEMI HISTORY: Patient is a 54-year-old male with history of hypertension, diabetes mellitus, former tobacco and noncompliance, as well as prior cardiomyopathy with ejection fraction 40-45%. He previously followed with Dr. Ramos however has not had follow-up recently. He presented with mainly shortness breath over the last week and especially over the last 2 days and was found to be in acute heart failure with new EF <20%. He denied specific chest pain however had increasing troponins noted this morning and the decision was made to take him urgently for heart catheterization. CONSENT:I have discussed the risks, benefits and alternative therapies for the above-mentioned procedure and for both sedation/analgesia as well as necessary blood product administration, if indicated, as they pertain to this patient. The patient has indicated understanding and acceptance of the risks and procedures discussed. PROCEDURE: After the risks, benefits and alternatives of the above mentioned procedure explained in detail with the patient, informed consent was obtained. Patient was taken to the catheterization lab and prepped and draped in usual fashion. 1% lidocaine was used to anesthetize the right radial artery. A 6- Latvian sheath was placed in the right radial artery using modified Seldinger technique. Left coronary angiography was performed with a 5-Latvian JL 3.5 catheter and right coronary angiography was performed with a 5-Latvian JR5 catheter in various views. The 5-Latvian JR 5 catheter fell into the left ventricle and pressure measurements were obtained. The decision was made given his increasing troponinsto intervene upon the mid LAD and OM 2. A CLS 3.5 guide was used to engage the left main. Heparin was given for an ACT over 250. A 0.014 BMW wire was advanced into the distal LAD. The mid LAD was predilated with a 2.25 x 15mm balloon. Next a 2.5 x 33mm Xience CHIDI was placed in the mid LAD. The stent was post dilated with a 3.0mm NC balloon. There was no reflow noted and therefore intracoronary nicardipene was given with improvement in flow. Pre intervention of the LAD there was JET 3 flow and 80% stenosis and post intervention there was JET 3 flow and 0% residual stenosis. There was apical LAD stenosis which was felt best treated medically. Next the 0.014 wire was redirected into the OM2 artery. The lesion was predilated with a 2.0 balloon. Next, a 2.25 x 18mm Xience CHIDI was placed in the mid OM2. There was more distal 10-20% stenosis however felt best treated medically. The wire was pulled and final angiograms were then performed. Pre intervention there was JET 2 flow and 90% stenosis and post intervention there was JET 3 flow and 10% residual stenosis. The right radial sheath was removed and a TR band was placed with hemostasis achieved. The patient tolerated the procedure well. Patient was transported back to the post catheterization holding area in stable condition. Conscious Sedation: Patient was monitored under the direct supervision of vision of myself for conscious sedation using 1 mg Versed and 50 mcg fentanyl for a total duration of 67 minutes HEMODYNAMICS: Ao: 100/45 LV: 102/8, LVEDP 34 mmHG SELECTIVE CORONARY ARTERIOGRAPHY: LEFT MAIN: The left main is a large caliber vessel which bifurcates into the LAD and circumflex. There is no significant stenosis. LEFT ANTERIOR DESCENDING CORONARY ARTERY: LAD is a large caliber vessel which wraps around to the apex. There is a long 80% mid LAD stenosis with what appears to be thrombus. The distal apical LAD has a 80% stenosis however is small caliber. The remainder of the LAD has mild luminal irregularities and diagonal 1 is a small to moderate caliber vessel with mid 30-40% stenosis. LEFT CIRCUMFLEX CORONARY ARTERY: Left circumflex is a moderate caliber vessel. It gives off a "high" OM1 with an origin 40% stenosis and a mid 70% OM1 stenosis. OM2 is a small to moderate caliber vessel with a 90-95% stenosis and JET 2 flow. OM3 has mild luminal irregularities. RIGHT CORONARY ARTERY: The right coronary artery is a moderate to large caliber vessel which gives off a PDA and PLV branch and is the dominant vessel. There are mild luminal irregularities of the RCA. The proximal PDA has tandem 80% and 80% stenoses however appears to be nearly a 1.75mm vessel at this level. There are right to left collaterals to the apical LAD. There is a 80% stenosis of an acute marginal branch. FINAL IMPRESSION: 1. CAD as described above including 80% mid LAD, 80% distal LAD, 70% OM1, 90- 95% stenosis of OM2, and tandem 80% stenoses of small caliber PDA. 2. NSTEMI with culprit artery felt to be LAD 3. S/p successful PCI of mid LAD with 2.5 x 33 mm Xience CHIDI, post dilated with a 3.0 mm NC balloon, PCI of mid OM2 with a 2.25 x 18mm Xience CHIDI 4. Elevated left sided filling pressures PLAN: 1. Aggressive risk factor modification per most recent ACC/AHA guidelines. 2. Optimize heart failure regimen. If patient has recurrent angina could consider intervention of PDA or OM1 however would recommend medical therapy first. 3. Continue dual antiplatelets for 12 months.
[2020-07-30 17:58] LABS: Glucose,Whole Blood 491 mg/dL (75-99)
[2020-07-30] MEDS ORDERED: INSULIN ASPART (NovoLOG) 100 UNIT/ML VIAL SQ ONE (18:07)
[2020-07-30] MEDS: INSULIN DETEMIR (LEVEMIR) 100 UNIT/ML SYR SQ SCH (18:23)
[2020-07-30 21:25] LABS: Glucose,Whole Blood 250 mg/dL (75-99)
[2020-07-30] MEDS: TICAGRELOR 90 MG TAB PO SCH (21:39)
[2020-07-30 23:57] LABS: Glucose,Whole Blood 102 mg/dL (75-99)
[2020-07-31] MEDS: FUROSEMIDE 10 MG/ML 4 ML VIAL IV SCH ×4 (00:54→23:16)
[2020-07-31 05:20] LABS: Basophils # (A) 0.1 k/uL (0-0.2); Basophils % (A) 0 %; Eosinophils # (A) 0.1 k/uL (0-0.7); Eosinophils % (A) 1 %; HCT 39.3 % (39.0-53.0); HGB 12.6 gm/dL (13.0-17.5); Lymphocytes # (A) 1.6 k/uL (1.0-4.8); Lymphocytes % (A) 13 %; MCH 28.6 pg (25.0-35.0); MCHC 31.9 g/dL (31.0-37.0); MCV 89.5 fL (80.0-100.0); Mean Platelet Volume 7.8; Monocytes # (A) 0.7 k/uL (0-1.0); Monocytes % (A) 6 %; Neutrophils # (A) 9.6 k/uL (1.3-7.7); Neutrophils % (A) 79 %; Platelet Count 397 k/uL (150-450); RDW 13.1 % (11.5-15.5); WBC 12.2 k/uL (3.8-10.6)
[2020-07-31 05:29] LABS: Calcium 8.9 mg/dL (8.4-10.2); Magnesium 1.9 mg/dL (1.6-2.3); Potassium 3.5 mmol/L (3.5-5.1)
[2020-07-31] MEDS ORDERED: Potassium Replacement Protocol 1 EACH MISC MISCELLANE PRN (06:01)
[2020-07-31] MEDS ORDERED: Magnesium Replacement Protocol 1 EACH MISC MISCELLANE PRN (06:02)
[2020-07-31] MEDS: HEPARIN SOD,PORK IN 0.45% NACL 25,000 UNIT in 0.45% NACL 1 250ML.BAG IV SCH (06:04)
[2020-07-31 06:18] LABS: Partial Thromboplastin Time 44.9 sec (22.0-30.0)
[2020-07-31] MEDS: POTASSIUM CHLORIDE ER 20 MEQ TAB.ER PO SCH ×2 (06:38→09:19)
[2020-07-31] MEDS: MAGNESIUM SULFATE-D5W PMX 1 GM in DEXTROSE/WATER 1 100ML.BAG IVPB SCH ×2 (06:38→09:17)
[2020-07-31 07:26] LABS: Glucose,Whole Blood 175 mg/dL (75-99)
[2020-07-31] MEDS ORDERED: FUROSEMIDE 10 MG/ML 4 ML VIAL IV STA (08:26)
[2020-07-31] MEDS: TICAGRELOR 90 MG TAB PO SCH ×2 (09:20→20:49)
[2020-07-31] MEDS: ATORVASTATIN 40 MG TAB PO SCH (09:20)
[2020-07-31] MEDS: lisinopriL 5 MG TAB PO SCH (09:20)
[2020-07-31] MEDS: ASPIRIN 81 MG PO SCH (09:20)
[2020-07-31] MEDS: METOPROLOL TARTRATE 25 MG TAB PO SCH ×2 (09:20→20:49)
[2020-07-31] MEDS: INSULIN ASPART (NovoLOG) 100 UNIT/ML VIAL SQ SCH ×4 (09:21→20:58)
--- NOTE | 2020-07-31 09:56 | P.PN ---
Subjective HISTORY OF PRESENTING ILLNESS This is a pleasant 54-year-old male past medical history significant for hypertension, diabetes mellitus, former nicotine dependence and history of medical noncompliance. 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 He underwent cardiac catheterization yesterday via the right radial artery revealing left main free of significant stenosis, LAD with 80% lesion in the midportion appears to be a thrombus, distal apical LAD with 80% stenosis, diagonal 1 with mid 30-40% stenosis, circumflex gives off a high OM1 with an origin 40% stenosis and a mid 70% stenosis, OM 2 with a 90-95% stenosis, OM 3 mild luminal irregularities, RCA with mild luminal irregularities, proximal PDA has tandem 80% and 80% stenosis and right to left collaterals to the apical LAD. He underwent successful PCI of the mid LAD and OM 2. He had elevated LVEDP of 34. He continues to be orthopneic and coughing through the night. He has had no symptoms of chest discomfort. 24-hour urine output 2450 mL with a negative fluid balance of 1609. Blood pressure 141/91 heart rate 89 afebrile maintaining oxygen saturation on nasal cannula. Laboratory data reviewed, WBC 12.2, hemoglobin 12.6, platelets 397, sodium 134, potassium 3.5, creatinine 1.15 and magnesium 1.9. Baseline INR is 1.0. Currently maintained on heparin infusion secondary to LV thrombus, nitroglycerin infusion titrated for blood pressure, aspirin 81 mg daily, brilinta 90 mg twice a day atorvastatin 40 mg daily, Lasix 40 mg IV 3 times a day, lisinopril 5 mg daily and metoprolol 25 mg twice a day. PHYSICAL EXAMINATION CONSTITUTIONAL: Mildly tachyneic when supine. HEENT: Head is normocephalic. Pupils are equal, round. Sclerae anicteric. Mucous membranes of the mouth are moist. No JVD. No carotid bruit. CHEST EXAMINATION: Tachypneic, bibasrilar rales, no wheezes or rhonchi. No chest wall tenderness is noted on palpation or with deep breathing. HEART EXAMINATION: Regular rate and rhythm. S1, S2 heard. No murmurs, gallops or rub. EXTREMITIES: 2+ peripheral pulses, no lower extremity edema and no calf tenderness. ASSESSMENT Acute non-ST elevated myocardial infarction Hypertensive urgency Acute on chronic systolic heart failure, EF less than 20% worsened since 2016 Diabetes mellitus Ischemic cardiomyopathy Non-compliance History of alcohol use, pt states every week, not daily PLAN Increase lasix to 80 mg IV TID for ongoing diuresis. Add daily potassium. Continue nitro and heparin infusion. Initiate coumadin daily along with heparin to bridge for therapeutic INR of 2-3. Given his TX and cardiomyopathy he has increased risk of sudden cardiac and we recommend Life Vest placement prior to discharge. His LV function will be re-evaluated in the office in 3 months time and ICD will be discussed further if warranted. This has been explained to the patient in great detail and he is agreeable with the plan. Follow electrolytes and renal function in the morning. Nurse Practitioner note has been reviewed, I agree with a documented findings and plan of care. Patient was seen and examined. Objective - Vital Signs Vital signs: Vital Signs Temp 98.5 F 07/31/20 04:00 Pulse 89 07/31/20 08:00 Resp 18 07/31/20 08:00 BP 141/91 07/31/20 08:00 Pulse Ox 97 07/31/20 08:00 Intake & Output 07/30/20 07/31/20 07/31/20 18:59 06:59 18:59 Intake Total 92.563 748.270 20 Output Total 1400 1050 0 Balance -1307.437 -301.730 20 Intake: IV 50 320 20 0.9 NS @KVO 220 20 Magnesium Sulfate-D5w Pmx 100 1 gm In Dextrose/Water 1 100ml.bag @ 100 mls/hr IVPB Q1H JOHN Rx#: [id number] Intake, IV Titration 42.563 128.270 Amount Heparin Sod,Pork in 0.45% 42.163 128.270 NaCl 25,000 unit In 0.45 % NaCl 1 250ml.bag @ 12 UNITS/KG/HR 8.001 mls/hr IV .Q24H JOHN Rx#: [id number] Nitroglycerin-D5w Pmx 50 0.4 mg In Dextrose/Water 1 250ml.bag @ Titrate IV . Q0M JOHN Rx#:[id number] Oral 300 Output: Urine 1400 1050 0 Other: Voiding Method Toilet Urinal - Labs CBC & Chem 7: 07/31/20 04:33 07/31/20 04:33 Labs: Abnormal Lab Results - Last 24 Hours (Table) 07/30/20 07/30/20 07/30/20 Range/Units 08:38 13:58 17:56 WBC (3.8-10.6) k/uL Hgb (13.0-17.5) gm/dL Neutrophils # (1.3-7.7) k/uL APTT 63.5 H (22.0-30.0) sec Sodium (137-145) mmol/L BUN (9-20) mg/dL Glucose (74-99) mg/dL POC Glucose (mg/dL) 491 H (75-99) mg/dL Hemoglobin A1c 15.0 H (4.0-6.0) % 07/30/20 07/30/20 07/30/20 Range/Units 21:14 21:24 23:55 WBC (3.8-10.6) k/uL Hgb (13.0-17.5) gm/dL Neutrophils # (1.3-7.7) k/uL APTT 33.3 H (22.0-30.0) sec Sodium (137-145) mmol/L BUN (9-20) mg/dL Glucose (74-99) mg/dL POC Glucose (mg/dL) 250 H 102 H (75-99) mg/dL Hemoglobin A1c (4.0-6.0) % 07/31/20 07/31/20 07/31/20 Range/Units 04:33 04:33 04:33 WBC 12.2 H (3.8-10.6) k/uL Hgb 12.6 L (13.0-17.5) gm/dL Neutrophils # 9.6 H (1.3-7.7) k/uL APTT 44.9 H (22.0-30.0) sec Sodium 134 L (137-145) mmol/L BUN 25 H (9-20) mg/dL Glucose 131 H (74-99) mg/dL POC Glucose (mg/dL) (75-99) mg/dL Hemoglobin A1c (4.0-6.0) % 07/31/20 Range/Units 07:24 WBC (3.8-10.6) k/uL Hgb (13.0-17.5) gm/dL Neutrophils # (1.3-7.7) k/uL APTT (22.0-30.0) sec Sodium (137-145) mmol/L BUN (9-20) mg/dL Glucose (74-99) mg/dL POC Glucose (mg/dL) 175 H (75-99) mg/dL Hemoglobin A1c (4.0-6.0) %
[2020-07-31 12:06] LABS: Glucose,Whole Blood 237 mg/dL (75-99)
--- NOTE | 2020-07-31 14:35 | P.PN ---
Subjective Visit pleasant 54-year-old male admitted with a non-ST elevation microinfarction. Found to have EF of around 15-20%. Patient underwent cardiac catheterization of mid LAD and OM 2 branches. This is primarily Lasix with a negative fluid balance can use to be in heart failure exacerbation shortness of breath improved but still a bit short of breath. Patient remains in the IV heparin for LV thrombus patient is on dual antiplatelet therapy at this time. Constitutional: Denied any fatigue denied any fever. Cardio vascular: As mentioned in HPI Gastrointestinal denied any nausea vomiting Pulmonary: Denied any shortness of breath cough Neurologic denied any new focal deficits All inpatient medications were reviewed and appropriate changes in these medications as dictated in the interval history and assessment and plan. Objective - Vital Signs Vital signs: Vital Signs Temp 98.2 F 07/31/20 12:00 Pulse 94 07/31/20 14:00 Resp 22 07/31/20 14:00 BP 133/79 07/31/20 14:00 Pulse Ox 99 07/31/20 12:00 Intake & Output 07/30/20 07/31/20 07/31/20 18:59 06:59 18:59 Intake Total 92.563 748.270 700 Output Total 1400 1050 1200 Balance -1307.437 -301.730 -500 Weight 69.8 kg Intake: IV 50 320 220 0.9 NS @KVO 220 120 Magnesium Sulfate-D5w Pmx 100 100 1 gm In Dextrose/Water 1 100ml.bag @ 100 mls/hr IVPB Q1H JOHN Rx#: [id number] Intake, IV Titration 42.563 128.270 Amount Heparin Sod,Pork in 0.45% 42.163 128.270 NaCl 25,000 unit In 0.45 % NaCl 1 250ml.bag @ 12 UNITS/KG/HR 8.001 mls/hr IV .Q24H JOHN Rx#: [id number] Nitroglycerin-D5w Pmx 50 0.4 mg In Dextrose/Water 1 250ml.bag @ Titrate IV . Q0M JOHN Rx#:[id number] Oral 300 480 Output: Urine 1400 1050 1200 Other: Voiding Method Toilet Urinal Urinal # Voids 1 # Bowel Movements 1 - Exam PHYSICAL EXAMINATION: GENERAL: The patient is alert and oriented x3, not in any acute distress. Well developed, well nourished. HEENT: Pupils are round and equally reacting to light. EOMI. No scleral icterus. No conjunctival pallor. Normocephalic, atraumatic. No pharyngeal erythema. No thyromegaly. CARDIOVASCULAR: S1 and S2 present. No murmurs, rubs, or gallops. PULMONARY: Chest is clear to auscultation, no wheezing or crackles. ABDOMEN: Soft, nontender, nondistended, normoactive bowel sounds. No palpable organomegaly. MUSCULOSKELETAL: No joint swelling or deformity. EXTREMITIES: No cyanosis, clubbing, very mild pedal edema NEUROLOGICAL: Gross neurological examination did not reveal any focal deficits. SKIN: No rashes. - Labs CBC & Chem 7: 07/31/20 04:33 07/31/20 04:33 Labs: Abnormal Lab Results - Last 24 Hours (Table) 07/30/20 07/30/20 07/30/20 Range/Units 08:38 13:58 17:56 WBC (3.8-10.6) k/uL Hgb (13.0-17.5) gm/dL Neutrophils # (1.3-7.7) k/uL APTT 63.5 H (22.0-30.0) sec Sodium (137-145) mmol/L BUN (9-20) mg/dL Glucose (74-99) mg/dL POC Glucose (mg/dL) 491 H (75-99) mg/dL Hemoglobin A1c 15.0 H (4.0-6.0) % 07/30/20 07/30/20 07/30/20 Range/Units 21:14 21:24 23:55 WBC (3.8-10.6) k/uL Hgb (13.0-17.5) gm/dL Neutrophils # (1.3-7.7) k/uL APTT 33.3 H (22.0-30.0) sec Sodium (137-145) mmol/L BUN (9-20) mg/dL Glucose (74-99) mg/dL POC Glucose (mg/dL) 250 H 102 H (75-99) mg/dL Hemoglobin A1c (4.0-6.0) % 07/31/20 07/31/20 07/31/20 Range/Units 04:33 04:33 04:33 WBC 12.2 H (3.8-10.6) k/uL Hgb 12.6 L (13.0-17.5) gm/dL Neutrophils # 9.6 H (1.3-7.7) k/uL APTT 44.9 H (22.0-30.0) sec Sodium 134 L (137-145) mmol/L BUN 25 H (9-20) mg/dL Glucose 131 H (74-99) mg/dL POC Glucose (mg/dL) (75-99) mg/dL Hemoglobin A1c (4.0-6.0) % 07/31/20 07/31/20 Range/Units 07:24 12:03 WBC (3.8-10.6) k/uL Hgb (13.0-17.5) gm/dL Neutrophils # (1.3-7.7) k/uL APTT (22.0-30.0) sec Sodium (137-145) mmol/L BUN (9-20) mg/dL Glucose (74-99) mg/dL POC Glucose (mg/dL) 175 H 237 H (75-99) mg/dL Hemoglobin A1c (4.0-6.0) % Assessment and Plan Plan: -Acute non-ST elevation microinfarction: Patient is status post cardiac catheterization and stenting as mentioned above but will be continued on dual a ntiplatelet therapy, statin and a beta derek -Congestive heart failure patient has both acute and chronic systolic dysfunction acute systolic dysfunction secondary to acute myocardial infarction patient has acute pulmonary edema and heart failure exacerbation patient is presently on Lasix. Patient is on BELLA inhibitor as well -Left ventricular thrombus for which patient is on heparin for now. -Type 2 diabetes mellitus -Hypertension
[2020-07-31 16:48] LABS: Glucose,Whole Blood 195 mg/dL (75-99)
[2020-07-31] MEDS ORDERED: WARFARIN 5 MG TAB PO ONE (18:00)
[2020-07-31] MEDS: INSULIN DETEMIR (LEVEMIR) 100 UNIT/ML SYR SQ SCH (20:54)
[2020-07-31 20:55] LABS: Glucose,Whole Blood 295 mg/dL (75-99)
[2020-08-01 05:58] LABS: Basophils # (A) 0.1 k/uL (0-0.2); Basophils % (A) 1 %; Eosinophils # (A) 0.2 k/uL (0-0.7); Eosinophils % (A) 2 %; HGB 13.8 gm/dL (13.0-17.5); Lymphocytes # (A) 2.1 k/uL (1.0-4.8); Lymphocytes % (A) 24 %; MCH 29.9 pg (25.0-35.0); MCHC 32.8 g/dL (31.0-37.0); MCV 91.2 fL (80.0-100.0); Mean Platelet Volume 7.7; Monocytes # (A) 0.7 k/uL (0-1.0); Monocytes % (A) 8 %; Neutrophils # (A) 5.5 k/uL (1.3-7.7); Neutrophils % (A) 63 %; Platelet Count 391 k/uL (150-450); RBC 4.61 m/uL (4.30-5.90); RDW 12.5 % (11.5-15.5); WBC 8.7 k/uL (3.8-10.6)
[2020-08-01 06:06] LABS: Calcium 8.6 mg/dL (8.4-10.2); Potassium 3.3 mmol/L (3.5-5.1)
[2020-08-01 06:14] LABS: INR 0.9 (<1.2); Prothrombin Time 9.7 sec (9.0-12.0)
[2020-08-01] MEDS: HEPARIN SODIUM,PORCINE 5,000 UNIT/ML 1 ML VIAL IV PRN ×2 (06:25→11:27)
[2020-08-01] MEDS: HEPARIN SOD,PORK IN 0.45% NACL 25,000 UNIT in 0.45% NACL 1 250ML.BAG IV SCH (06:26)
[2020-08-01 06:53] LABS: Glucose,Whole Blood 119 mg/dL (75-99)
[2020-08-01] MEDS: INSULIN ASPART (NovoLOG) 100 UNIT/ML VIAL SQ SCH ×4 (06:53→20:38)
[2020-08-01] MEDS ORDERED: IPRATROPIUM-ALBUTEROL 3 ML NEB INHALATION PRN (08:42)
--- NOTE | 2020-08-01 09:12 | P.PN ---
Subjective Progress Note Date: 08/01/20 HISTORY OF PRESENTING ILLNESS This is a pleasant 54-year-old male past medical history significant for hyp ertension, diabetes mellitus, former nicotine dependence and history of medical noncompliance. 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 He underwent cardiac catheterization yesterday via the right radial artery revealing left main free of significant stenosis, LAD with 80% lesion in the midportion appears to be a thrombus, distal apical LAD with 80% stenosis, diagonal 1 with mid 30-40% stenosis, circumflex gives off a high OM1 with an origin 40% stenosis and a mid 70% stenosis, OM 2 with a 90-95% stenosis, OM 3 mild luminal irregularities, RCA with mild luminal irregularities, proximal PDA has tandem 80% and 80% stenosis and right to left collaterals to the apical LAD. He underwent successful PCI of the mid LAD and OM 2. He had elevated LVEDP of 34. He continues to be orthopneic and coughing through the night. He has had no symptoms of chest discomfort. 24-hour urine output 2450 mL with a negative fluid balance of 1609. Blood pressure 141/91 heart rate 89 afebrile maintaining oxygen saturation on nasal cannula. Laboratory data reviewed, WBC 12.2, hemoglo bin 12.6, platelets 397, sodium 134, potassium 3.5, creatinine 1.15 and magnesium 1.9. Baseline INR is 1.0. Currently maintained on heparin infusion secondary to LV thrombus, nitroglycerin infusion titrated for blood pressure, aspirin 81 mg daily, brilinta 90 mg twice a day atorvastatin 40 mg daily, Lasix 40 mg IV 3 times a day, lisinopril 5 mg daily and metoprolol 25 mg twice a day. 08/01/2020 Patient seen and examined. He admits that his orthopnea is somewhat improved. He continues to put out good urine output with IV Lasix 3 times a day. He does have a cough with deep inspiration. Has been up to use the bathroom however much other activity. Nitroglycerin IV infusion was discontinued yesterday. He denies any chest pain or pressure. PHYSICAL EXAMINATION CONSTITUTIONAL: In no acute distress, alert and awake HEENT: Head is normocephalic. Pupils are equal, round. Sclerae anicteric. Mucous membranes of the mouth are moist. No JVD. No carotid bruit. CHEST EXAMINATION: Tachypneic, bibasrilar rales, no wheezes or rhonchi. No chest wall tenderness is noted on palpation or with deep breathing. HEART EXAMINATION: Regular rate and rhythm. S1, S2 heard. No murmurs, gallops or rub. EXTREMITIES: 2+ peripheral pulses, no lower extremity edema and no calf tenderness. ASSESSMENT Acute non-ST elevated myocardial infarction Essential hypertension Acute on chronic systolic heart failure, EF less than 20% worsened since 2016 Diabetes mellitus Ischemic cardiomyopathy Non-compliance History of alcohol use, pt states every week, not daily PLAN Change Lasix to 40 mg by mouth twice a day. Increase lisinopril from 5 mg to 10 mg for heart failure optimization. Continue beta derek. Continue coumadin daily along with heparin to bridge for therapeutic INR of 2-3. LifeVest before discharge. Replace potassium Follow electrolytes and renal function in the morning. Patient may be transferred from the ICU Objective - Vital Signs Vital signs: Vital Signs Temp 97.5 F L 08/01/20 00:00 Pulse 89 08/01/20 07:00 Resp 29 H 08/01/20 07:00 BP 132/88 08/01/20 07:00 Pulse Ox 97 08/01/20 06:30 Intake & Output 07/31/20 08/01/20 08/01/20 18:59 06:59 18:59 Intake Total 1020 467.463 159.3 Output Total 1750 2950 Balance -730 -2482.537 159.3 Weight 69.8 kg 68.3 kg Intake: IV 300 240 20 0.9 NS @KVO 200 240 20 Magnesium Sulfate-D5w Pmx 100 1 gm In Dextrose/Water 1 100ml.bag @ 100 mls/hr IVPB Q1H JOHN Rx#: [id number] Intake, IV Titration 227.463 139.3 Amount Heparin Sod,Pork in 0.45% 227.463 NaCl 25,000 unit In 0.45 % NaCl 1 250ml.bag @ 12 UNITS/KG/HR 8.001 mls/hr IV .Q24H JOHN Rx#: [id number] Nitroglycerin-D5w Pmx 50 139.3 mg In Dextrose/Water 1 250ml.bag @ Titrate IV . Q0M JOHN Rx#:[id number] Oral 720 Output: Urine 1750 2950 Other: Voiding Method Toilet Toilet Urinal Urinal # Voids 1 1 # Bowel Movements 1 - Labs CBC & Chem 7: 08/01/20 05:25 08/01/20 05:25 Labs: Abnormal Lab Results - Last 24 Hours (Table) 07/31/20 07/31/20 07/31/20 Range/Units 12:03 16:46 20:53 APTT (22.0-30.0) sec Sodium (137-145) mmol/L Potassium (3.5-5.1) mmol/L BUN (9-20) mg/dL Glucose (74-99) mg/dL POC Glucose (mg/dL) 237 H 195 H 295 H (75-99) mg/dL 08/01/20 08/01/20 08/01/20 Range/Units 05:25 05:25 06:51 APTT 41.0 H (22.0-30.0) sec Sodium 136 L (137-145) mmol/L Potassium 3.3 L (3.5-5.1) mmol/L BUN 26 H (9-20) mg/dL Glucose 129 H (74-99) mg/dL POC Glucose (mg/dL) 119 H (75-99) mg/dL
[2020-08-01] MEDS: POTASSIUM CHLORIDE ER 20 MEQ TAB.ER PO SCH (09:38)
[2020-08-01] MEDS: FUROSEMIDE 40 MG TAB PO SCH ×2 (09:38→16:26)
[2020-08-01] MEDS: TICAGRELOR 90 MG TAB PO SCH ×2 (09:38→20:31)
[2020-08-01] MEDS: ATORVASTATIN 40 MG TAB PO SCH (09:38)
[2020-08-01] MEDS: ASPIRIN 81 MG PO SCH (09:38)
[2020-08-01] MEDS: METOPROLOL TARTRATE 25 MG TAB PO SCH ×2 (09:38→20:31)
[2020-08-01] MEDS: lisinopriL 10 MG TAB PO SCH (09:39)
[2020-08-01 12:01] LABS: Glucose,Whole Blood 261 mg/dL (75-99)
[2020-08-01] MEDS ORDERED: POTASSIUM CHLORIDE ER 20 MEQ TAB.ER PO STA (13:51)
--- NOTE | 2020-08-01 14:28 | P.PN ---
Subjective Visit pleasant 54-year-old male admitted with a non-ST elevation microinfarction. Found to have EF of around 15-20%. Patient underwent cardiac catheterization of mid LAD and OM 2 branches. This is primarily Lasix with a negative fluid balance can use to be in heart failure exacerbation shortness of breath improved but still a bit short of breath. Patient remains in the IV heparin for LV thrombus patient is on dual antiplatelet therapy at this time. 08/01/2020 Patient is feeling much better patient is off oxygen patient is fairly euvolemic at this time will be continued on Lasix today and possibility of discharge tomorrow. Patient has a LifeVest now. Patient was started on Coumadin INR is still 1 patient may need bridging Lovenox. Constitutional: Denied any fatigue denied any fever. Cardio vascular: As mentioned in HPI Gastrointestinal denied any nausea vomiting Pulmonary: Denied any shortness of breath cough Neurologic denied any new focal deficits All inpatient medications were reviewed and appropriate changes in these medi cations as dictated in the interval history and assessment and plan. Objective - Vital Signs Vital signs: Vital Signs Temp 97.9 F 08/01/20 12:00 Pulse 87 08/01/20 13:35 Resp 19 08/01/20 12:00 BP 123/83 08/01/20 12:00 Pulse Ox 96 08/01/20 12:00 Intake & Output 07/31/20 08/01/20 08/01/20 18:59 06:59 18:59 Intake Total 1020 467.463 312.107 Output Total 1750 2950 150 Balance -730 -2482.537 162.107 Weight 69.8 kg 68.3 kg Intake: IV 300 240 120 0.9 NS @KVO 200 240 120 Magnesium Sulfate-D5w Pmx 100 1 gm In Dextrose/Water 1 100ml.bag @ 100 mls/hr IVPB Q1H [facility] Rx#: [id number] Intake, IV Titration 227.463 192.107 Amount Heparin Sod,Pork in 0.45% 227.463 52.807 NaCl 25,000 unit In 0.45 % NaCl 1 250ml.bag @ 12 UNITS/KG/HR 8.001 mls/hr IV .Q24H [facility] Rx#: [id number] Nitroglycerin-D5w Pmx 50 139.3 mg In Dextrose/Water 1 250ml.bag @ Titrate IV . Q0M [facility] Rx#:[id number] Oral 720 Output: Urine 1750 2950 150 Other: Voiding Method Toilet Toilet Toilet Urinal Urinal Urinal # Voids 1 1 0 # Bowel Movements 1 - Exam PHYSICAL EXAMINATION: GENERAL: The patient is alert and oriented x3, not in any acute distress. Well developed, well nourished. HEENT: Pupils are round and equally reacting to light. EOMI. No scleral icterus. No conjunctival pallor. Normocephalic, atraumatic. No pharyngeal erythema. No thyromegaly. CARDIOVASCULAR: S1 and S2 present. No murmurs, rubs, or gallops. PULMONARY: Chest is clear to auscultation, no wheezing or crackles. ABDOMEN: Soft, nontender, nondistended, normoactive bowel sounds. No palpable organomegaly. MUSCULOSKELETAL: No joint swelling or deformity. EXTREMITIES: No cyanosis, clubbing, very mild pedal edema NEUROLOGICAL: Gross neurological examination did not reveal any focal deficits. SKIN: No rashes. - Labs CBC & Chem 7: 08/01/20 05:25 08/01/20 05:25 Labs: Abnormal Lab Results - Last 24 Hours (Table) 07/31/20 07/31/20 08/01/20 Range/Units 16:46 20:53 05:25 APTT 41.0 H (22.0-30.0) sec Sodium (137-145) mmol/L Potassium (3.5-5.1) mmol/L BUN (9-20) mg/dL Glucose (74-99) mg/dL POC Glucose (mg/dL) 195 H 295 H (75-99) mg/dL 08/01/20 08/01/20 08/01/20 Range/Units 05:25 06:51 10:37 APTT 43.4 H (22.0-30.0) sec Sodium 136 L (137-145) mmol/L Potassium 3.3 L (3.5-5.1) mmol/L BUN 26 H (9-20) mg/dL Glucose 129 H (74-99) mg/dL POC Glucose (mg/dL) 119 H (75-99) mg/dL 08/01/20 Range/Units 11:59 APTT (22.0-30.0) sec Sodium (137-145) mmol/L Potassium (3.5-5.1) mmol/L BUN (9-20) mg/dL Glucose (74-99) mg/dL POC Glucose (mg/dL) 261 H (75-99) mg/dL Assessment and Plan Plan: -Acute non-ST elevation microinfarction: Patient is status post cardiac catheterization and stenting as mentioned above but will be continued on dual antiplatelet therapy, statin and a beta derek -Congestive heart failure patient has both acute and chronic systolic dysfunction acute systolic dysfunction secondary to acute myocardial infarction patient has acute pulmonary edema and heart failure exacerbation patient is presently on Lasix. Patient is on BELLA inhibitor as well -Left ventricular thrombus for which patient is on heparin bridging and was started on Coumadin as well. INR is 1.0 -Type 2 diabetes mellitus -Hypertension
[2020-08-01 17:19] LABS: Glucose,Whole Blood 288 mg/dL (75-99)
[2020-08-01] MEDS ORDERED: WARFARIN 5 MG TAB PO ONE (18:00)
[2020-08-01] MEDS ORDERED: BENZOCAINE/MENTHOL LOZENG 1 EACH LOZENGE MUCOUS MEM PRN (20:10)
[2020-08-01 20:36] LABS: Glucose,Whole Blood 214 mg/dL (75-99)
[2020-08-01] MEDS: INSULIN DETEMIR (LEVEMIR) 100 UNIT/ML SYR SQ SCH (20:39)
[2020-08-02 01:06] LABS: Glucose,Whole Blood 84 mg/dL (75-99)
[2020-08-02] MEDS: FUROSEMIDE 10 MG/ML 4 ML VIAL IV SCH ×2 (02:41→20:09)
[2020-08-02] MEDS: HEPARIN SOD,PORK IN 0.45% NACL 25,000 UNIT in 0.45% NACL 1 250ML.BAG IV SCH (05:54)
[2020-08-02 06:10] LABS: Glucose,Whole Blood 241 mg/dL (75-99)
[2020-08-02] MEDS: INSULIN ASPART (NovoLOG) 100 UNIT/ML VIAL SQ SCH ×4 (06:40→19:55)
[2020-08-02 07:10] LABS: Partial Thromboplastin Time 59.9 sec (22.0-30.0); Prothrombin Time 10.6 sec (9.0-12.0)
[2020-08-02] MEDS: ATORVASTATIN 40 MG TAB PO SCH (09:52)
[2020-08-02] MEDS: ASPIRIN 81 MG PO SCH (09:52)
[2020-08-02] MEDS: POTASSIUM CHLORIDE ER 20 MEQ TAB.ER PO SCH (09:52)
[2020-08-02] MEDS: FUROSEMIDE 40 MG TAB PO SCH (09:52)
[2020-08-02] MEDS: TICAGRELOR 90 MG TAB PO SCH ×2 (09:52→19:55)
[2020-08-02] MEDS: METOPROLOL TARTRATE 25 MG TAB PO SCH ×2 (09:52→19:55)
[2020-08-02] MEDS: lisinopriL 10 MG TAB PO SCH (09:52)
--- NOTE | 2020-08-02 11:57 | P.PN ---
Subjective Visit pleasant 54-year-old male admitted with a non-ST elevation microinfarction. Found to have EF of around 15-20%. Patient underwent cardiac catheterization of mid LAD and OM 2 branches. This is primarily Lasix with a negative fluid balance can use to be in heart failure exacerbation shortness of breath improved but still a bit short of breath. Patient remains in the IV heparin for LV thrombus patient is on dual antiplatelet therapy at this time. 08/01/2020 Patient is feeling much better patient is off oxygen patient is fairly euvolemic at this time will be continued on Lasix today and possibility of discharge tomorrow. Patient has a LifeVest now. Patient was started on Coumadin INR is still 1 patient may need bridging Lovenox. 08/02/2020 Patient's INR remains low patient is presently euvolemic. Patient probably need to be bridged with Lovenox. a p manager is working on these prescriptions as patient doesn't have insurance at this time. Constitutional: Denied any fatigue denied any fever. Cardio vascular: As mentioned in HPI Gastrointestinal denied any nausea vomiting Pulmonary: Denied any shortness of breath cough Neurologic denied any new focal deficits All inpatient medications were reviewed and appropriate changes in these medications as dictated in the interval history and assessment and plan. Objective - Vital Signs Vital signs: Vital Signs Temp 97.8 F 08/02/20 08:00 Pulse 87 08/02/20 08:00 Resp 18 08/02/20 08:00 BP 141/92 08/02/20 04:00 Pulse Ox 98 08/02/20 08:00 Intake & Output 08/01/20 08/02/20 08/02/20 18:59 06:59 18:59 Intake Total 392.107 197.193 240 Output Total 300 450 Balance 92.107 -252.807 240 Weight 66.6 kg Intake: IV 200 0.9 NS @KVO 200 Intake, IV Titration 192.107 197.193 Amount Heparin Sod,Pork in 0.45% 52.807 197.193 NaCl 25,000 unit In 0.45 % NaCl 1 250ml.bag @ 12 UNITS/KG/HR 8.001 mls/hr IV .Q24H [facility] Rx#: [id number] Nitroglycerin-D5w Pmx 50 139.3 mg In Dextrose/Water 1 250ml.bag @ Titrate IV . Q0M [facility] Rx#:[id number] Oral 240 Output: Urine 300 450 Other: Voiding Method Toilet Toilet Urinal Urinal # Voids 0 1 - Exam PHYSICAL EXAMINATION: GENERAL: The patient is alert and oriented x3, not in any acute distress. Well developed, well nourished. HEENT: Pupils are round and equally reacting to light. EOMI. No scleral icterus. No conjunctival pallor. Normocephalic, atraumatic. No pharyngeal erythema. No thyromegaly. CARDIOVASCULAR: S1 and S2 present. No murmurs, rubs, or gallops. PULMONARY: Chest is clear to auscultation, no wheezing or crackles. ABDOMEN: Soft, nontender, nondistended, normoactive bowel sounds. No palpable organomegaly. MUSCULOSKELETAL: No joint swelling or deformity. EXTREMITIES: No cyanosis, clubbing, very mild pedal edema NEUROLOGICAL: Gross neurological examination did not reveal any focal deficits. SKIN: No rashes. - Labs CBC & Chem 7: 08/01/20 05:25 08/01/20 17:47 Labs: Abnormal Lab Results - Last 24 Hours (Table) 08/01/20 08/01/20 08/01/20 Range/Units 11:59 17:18 17:47 APTT 55.6 H (22.0-30.0) sec POC Glucose (mg/dL) 261 H 288 H (75-99) mg/dL 08/01/20 08/02/20 08/02/20 Range/Units 20:34 06:08 06:30 APTT 59.9 H (22.0-30.0) sec POC Glucose (mg/dL) 214 H 241 H (75-99) mg/dL Assessment and Plan Plan: -Acute non-ST elevation microinfarction: Patient is status post cardiac catheter ization and stenting as mentioned above but will be continued on dual antiplatelet therapy, statin and a beta derek -Congestive heart failure patient has both acute and chronic systolic dysfunction acute systolic dysfunction secondary to acute myocardial infarction patient has acute pulmonary edema and heart failure exacerbation patient is presently on Lasix. Patient is on BELLA inhibitor as well -Left ventricular thrombus for which patient is on heparin bridging and was started on Coumadin as well. INR is 1.0, patient will need Lovenox which will increase the Coumadin and patient will be given 7.5 mg today INR check tomorrow -Type 2 diabetes mellitus -Hypertension
[2020-08-02 11:59] LABS: Glucose,Whole Blood 207 mg/dL (75-99)
--- NOTE | 2020-08-02 13:28 | P.PN ---
Subjective Progress Note Date: 08/02/20 HISTORY OF PRESENTING ILLNESS This is a pleasant 54-year-old male past medical history significant for hype rtension, diabetes mellitus, former nicotine dependence and history of medical noncompliance. He does not follow regularly in the office with a campus wellness coordinator. He underwent cardiac catheterization yesterday via the right radial artery revealing left main free of significant stenosis, LAD with 80% lesion in the midportion appears to be a thrombus, distal apical LAD with 80% stenosis, diagonal 1 with mid 30-40% stenosis, circumflex gives off a high OM1 with an origin 40% stenosis and a mid 70% stenosis, OM 2 with a 90-95% stenosis, OM 3 mild luminal irregularities, RCA with mild luminal irregularities, proximal PDA has tandem 80% and 80% stenosis and right to left collaterals to the apical LAD. He underwent successful PCI of the mid LAD and OM 2. He had elevated LVEDP of 34. He continues to be orthopneic and coughing through the night. He has had no symptoms of chest discomfort. 24-hour urine output 2450 mL with a negative fluid balance of 1609. Blood pressure 141/91 heart rate 89 afebrile maintaining oxygen saturation on nasal cannula. Laboratory data reviewed, WBC 12.2, hemoglobin 12.6, platelets 397, sodium 134, potassium 3.5, creatinine 1.15 and magnesium 1.9. Baseline INR is 1.0. Currently maintained on heparin infusion secondary to LV thrombus, nitroglycerin infusion titrated for blood pressure, aspirin 81 mg daily, brilinta 90 mg twice a day atorvastatin 40 mg daily, Lasix 40 mg IV 3 times a day, lisinopril 5 mg daily and metoprolol 25 mg twice a day. 08/01/2020 Patient seen and examined. He admits that his orthopnea is somewhat improved. He continues to put out good urine output with IV Lasix 3 times a day. He does have a cough with deep inspiration. Has been up to use the bathroom however much other activity. Nitroglycerin IV infusion was discontinued yesterday. He denies any chest pain or pressure. 08/02/2020 Patient seen and examined. Patient states he is still feeling well. He was transitioned to oral Lasix yesterday and still does have a cough when he lies flat however states this may be related to a postnasal drip. He was able to w alk the halls without much difficulty. He is receiving Coumadin with his INR still 1.0. He had hypokalemia yesterday and labs were not drawn this morning. Blood sugars have still been elevated. PHYSICAL EXAMINATION CONSTITUTIONAL: In no acute distress, alert and awake HEENT: Head is normocephalic. Pupils are equal, round. Sclerae anicteric. Mucous membranes of the mouth are moist. No JVD. No carotid bruit. CHEST EXAMINATION: Tachypneic, bibasrilar rales, no wheezes or rhonchi. No chest wall tenderness is noted on palpation or with deep breathing. HEART EXAMINATION: Regular rate and rhythm. S1, S2 heard. No murmurs, gallops or rub. EXTREMITIES: 2+ peripheral pulses, no lower extremity edema and no calf tenderness. ASSESSMENT Acute non-ST elevated myocardial infarction Essential hypertension Acute on chronic systolic heart failure, EF less than 20% worsened since 2016 Diabetes mellitus 2 Ischemic cardiomyopathy Non-compliance History of alcohol use, pt states every week, not daily Apical thrombus PLAN Change Lasix to 40 mg by mouth Daily as he appears euvolemic. Blood pressure mildly more elevated and we will increase lisinopril to 20 mg daily and Lopressor 50 mg twice a day. Continue coumadin daily along with heparin to bridge for therapeutic INR of 2-3. INR is still 1.0 and pharmacy to dose Coumadin. May need Lovenox to bridge. Ice Guard Inspector working on Lovenox. LifeVest before discharge. Obtain labs for today and replace as needed. Hopeful discharge home tomorrow if blood sugars and vitals are stable. He may need Coumadin with bridging with Lovenox as he is still subtherapeutic. Objective - Vital Signs Vital signs: Vital Signs Temp 98.1 F 08/02/20 12:00 Pulse 85 08/02/20 12:00 Resp 20 08/02/20 12:00 BP 141/91 08/02/20 12:00 Pulse Ox 99 08/02/20 12:00 Intake & Output 08/01/20 08/02/20 08/02/20 18:59 06:59 18:59 Intake Total 392.107 197.193 360 Output Total 300 450 Balance 92.107 -252.807 360 Weight 66.6 kg Intake: IV 200 0.9 NS @KVO 200 Intake, IV Titration 192.107 197.193 Amount Heparin Sod,Pork in 0.45% 52.807 197.193 NaCl 25,000 unit In 0.45 % NaCl 1 250ml.bag @ 12 UNITS/KG/HR 8.001 mls/hr IV .Q24H [facility] Rx#: [id number] Nitroglycerin-D5w Pmx 50 139.3 mg In Dextrose/Water 1 250ml.bag @ Titrate IV . Q0M [facility] Rx#:[id number] Oral 360 Output: Urine 300 450 Other: Voiding Method Toilet Toilet Toilet Urinal Urinal Urinal # Voids 0 1 - Labs CBC & Chem 7: 08/01/20 05:25 08/01/20 17:47 Labs: Abnormal Lab Results - Last 24 Hours (Table) 08/01/20 08/01/20 08/01/20 Range/Units 17:18 17:47 20:34 APTT 55.6 H (22.0-30.0) sec POC Glucose (mg/dL) 288 H 214 H (75-99) mg/dL 08/02/20 08/02/20 08/02/20 Range/Units 06:08 06:30 11:42 APTT 59.9 H (22.0-30.0) sec POC Glucose (mg/dL) 241 H 207 H (75-99) mg/dL
[2020-08-02 13:42] LABS: Basophils # (A) 0.1 k/uL (0-0.2); Basophils % (A) 2 %; Eosinophils # (A) 0.2 k/uL (0-0.7); Eosinophils % (A) 2 %; HCT 43.5 % (39.0-53.0); Lymphocytes # (A) 1.6 k/uL (1.0-4.8); Lymphocytes % (A) 22 %; MCH 30.4 pg (25.0-35.0); MCHC 32.2 g/dL (31.0-37.0); MCV 94.5 fL (80.0-100.0); Mean Platelet Volume 9.2; Monocytes # (A) 0.6 k/uL (0-1.0); Monocytes % (A) 8 %; Neutrophils # (A) 4.8 k/uL (1.3-7.7); Neutrophils % (A) 65 %; Platelet Count 347 k/uL (150-450); RDW 12.6 % (11.5-15.5); WBC 7.4 k/uL (3.8-10.6)
[2020-08-02 13:52] LABS: Calcium 8.4 mg/dL (8.4-10.2); Phosphorus 3.6 mg/dL (2.5-4.5); Potassium 4.1 mmol/L (3.5-5.1)
[2020-08-02 16:55] LABS: Glucose,Whole Blood 216 mg/dL (75-99)
[2020-08-02] MEDS ORDERED: WARFARIN 7.5 MG TAB PO ONE (18:00)
[2020-08-02] MEDS ORDERED: WARFARIN 10 MG TAB PO ONE (18:00)
[2020-08-02 19:46] LABS: Glucose,Whole Blood 252 mg/dL (75-99)
[2020-08-02] MEDS: INSULIN DETEMIR (LEVEMIR) 100 UNIT/ML SYR SQ SCH (20:07)
[2020-08-03] MEDS: HEPARIN SOD,PORK IN 0.45% NACL 25,000 UNIT in 0.45% NACL 1 250ML.BAG IV SCH (03:07)
[2020-08-03 06:15] LABS: Glucose,Whole Blood 145 mg/dL (75-99)
[2020-08-03] MEDS: INSULIN ASPART (NovoLOG) 100 UNIT/ML VIAL SQ SCH ×2 (06:36→12:38)
[2020-08-03 07:46] LABS: INR 1.4 (<1.2); Partial Thromboplastin Time 83.6 sec (22.0-30.0); Prothrombin Time 14.3 sec (9.0-12.0)
[2020-08-03] MEDS: ASPIRIN 81 MG PO SCH (08:47)
[2020-08-03] MEDS: ATORVASTATIN 40 MG TAB PO SCH (08:47)
[2020-08-03] MEDS: METOPROLOL TARTRATE 25 MG TAB PO SCH (08:48)
[2020-08-03] MEDS: TICAGRELOR 90 MG TAB PO SCH (08:48)
[2020-08-03] MEDS: lisinopriL 10 MG TAB PO SCH (08:48)
[2020-08-03] MEDS: POTASSIUM CHLORIDE ER 20 MEQ TAB.ER PO SCH (08:48)
[2020-08-03] MEDS ORDERED: FUROSEMIDE 40 MG TAB PO SCH (09:00)
--- NOTE | 2020-08-03 10:39 | P.PN ---
Subjective HISTORY OF PRESENTING ILLNESS This is a pleasant 54-year-old male past medical history significant for hypertension, diabetes mellitus, former nicotine dependence and history of medical noncompliance. He is seen and examined sitting up in bed in no acute distress. He denies chest pain, shortness of breath, dizziness or palpitations. Life Vest has been placed and he has not questions currently regarding this. He has been up ambulating without exertional shortness of breath. Blood pressure 133/94 heart rate 87 afebrile maintaining oxygen saturation on room air. Laboratory data reviewed, INR 1.4. Currently maintained on heparin infusion, or al Coumadin, aspirin 81 mg daily, brilinta 90 mg BID, atorvastatin 40 mg daily, Lasix 40 mg daily, lisinopril 10 mg daily and metoprolol 25 mg twice a day. PHYSICAL EXAMINATION CONSTITUTIONAL: Mildly tachyneic when supine. HEENT: Head is normocephalic. Pupils are equal, round. Sclerae anicteric. Mucous membranes of the mouth are moist. No JVD. No carotid bruit. CHEST EXAMINATION: Clear to auscultation bilaterally. No rales, wheezes or rhonchi. No chest wall tenderness is noted on palpation or with deep breathing. HEART EXAMINATION: Regular rate and rhythm. S1, S2 heard. No murmurs, gallops or rub. EXTREMITIES: 2+ peripheral pulses, no lower extremity edema and no calf tenderness. ASSESSMENT Acute non-ST elevated myocardial infarction Hypertensive urgency Acute on chronic systolic heart failure, EF less than 20% worsened since 2016 Diabetes mellitus Ischemic cardiomyopathy Non-compliance History of alcohol use, pt states every week, not daily Apical thrombus PLAN Depending on funding for lovenox the patient may be able to go home today if it is covered for outpatient bridging. If not he will need to remain in the hospital until INR 2-3. Case management is currently working on this. Nurse Practitioner note has been reviewed, I agree with a documented findings and plan of care. Patient was seen and examined. Objective - Vital Signs Vital signs: Vital Signs Temp 98 F 08/03/20 04:00 Pulse 87 08/03/20 04:00 Resp 18 08/03/20 04:00 BP 133/94 08/03/20 04:00 Pulse Ox 97 08/03/20 04:00 Intake & Output 10/11/20 10/12/20 10/12/20 18:59 06:59 18:59 Intake Total 600 250 222 Balance 600 250 222 Weight 66.8 kg Intake: Intake, IV Titration 250 Amount Heparin Sod,Pork in 0.45% 250 NaCl 25,000 unit In 0.45 % NaCl 1 250ml.bag @ 12 UNITS/KG/HR 8.001 mls/hr IV .Q24H [facility] Rx#: [id number] Oral 600 222 Other: Voiding Method Toilet Toilet Urinal Urinal # Voids 1 1 - Labs CBC & Chem 7: 08/02/20 06:30 08/02/20 06:30 Labs: Abnormal Lab Results - Last 24 Hours (Table) 08/02/20 08/02/20 08/02/20 Range/Units 06:30 11:42 16:48 PT (9.0-12.0) sec INR (<1.2) APTT (22.0-30.0) sec Sodium 132 L (137-145) mmol/L BUN 28 H (9-20) mg/dL Glucose 214 H (74-99) mg/dL POC Glucose (mg/dL) 207 H 216 H (75-99) mg/dL Albumin 3.0 L (3.5-5.0) g/dL 08/02/20 08/03/20 08/03/20 Range/Units 19:45 06:14 07:08 PT 14.3 H (9.0-12.0) sec INR 1.4 H (<1.2) APTT 83.6 H (22.0-30.0) sec Sodium (137-145) mmol/L BUN (9-20) mg/dL Glucose (74-99) mg/dL POC Glucose (mg/dL) 252 H 145 H (75-99) mg/dL Albumin (3.5-5.0) g/dL
--- NOTE | 2020-08-03 10:51 | P.DS ---
Providers Date of admission: 07/29/20 23:07 Attending physician: Reagan Garcia Consults: 07/29/20 23:07 Consult Physician Routine Consulting Provider: Elver Price Consult Reason/Comments: chf Do you want consulting provider notified?: Yes 07/30/20 11:58 Consult Physician Routine Consulting Provider: [facility] Consult Reason/Comments: Post Interventional patient Do you want consulting provider notified?: Already Contacted Primary care physician: Sydnie Mensah [facility] Course: 54-year-old male admitted with a non-ST elevation microinfarction. Found to have EF of around 15-20%. Patient underwent cardiac catheterization of mid LAD and OM 2 branches. This is primarily Lasix with a negative fluid balance can use to be in heart failure exacerbation shortness of breath improved but still a bit short of breath. Patient remains in the IV heparin for LV thrombus patient is on dual antiplatelet therapy at this time. 08/01/2020 Patient is feeling much better patient is off oxygen patient is fairly euvolemic at this time will be continued on Lasix today and possibility of discharge tomorrow. Patient has a LifeVest now. Patient was started on Coumadin INR is still 1 patient may need bridging Lovenox. 08/02/2020 Patient's INR remains low patient is presently euvolemic. Patient probably need to be bridged with Lovenox. manager center is working on these prescriptions as patient doesn't have insurance at this time. 08/03/2020 Patient and are round and today is bit better around 1.4. Patient will be discharged today patient will be given a bridging Lovenox and Coumadin. Patient is also on dual antiplatelet therapy patient was asked to monitor for any GI bleed or any other bleeding. Patient has LifeVest now. Patient is bit hyponatremic because of which asked him to hold off on potassium and Lasix for today and tomorrow. And his Lasix dose was cut down to 40 daily patient has EF of around 15-20% patient closely follow with PCP and cardiology as an outpatient PHYSICAL EXAMINATION: GENERAL: The patient is alert and oriented x3, not in any acute distress. Well developed, well nourished. HEENT: Pupils are round and equally reacting to light. EOMI. No scleral icterus. No conjunctival pallor. Normocephalic, atraumatic. No pharyngeal erythema. No thyromegaly. CARDIOVASCULAR: S1 and S2 present. No murmurs, rubs, or gallops. PULMONARY: Chest is clear to auscultation, no wheezing or crackles. ABDOMEN: Soft, nontender, nondistended, normoactive bowel sounds. No palpable organomegaly. MUSCULOSKELETAL: No joint swelling or deformity. EXTREMITIES: No cyanosis, clubbing, or pedal edema. NEUROLOGICAL: Gross neurological examination did not reveal any focal deficits. SKIN: No rashes. Assessment and Plan Plan: -Acute non-ST elevation myocardial infarction: Patient is status post cardiac catheterization and stenting as mentioned above but will be continued on dual antiplatelet therapy, statin and a beta derek -Congestive heart failure patient has both acute and chronic systolic dysfunction acute systolic dysfunction secondary to acute myocardial infarction patient has acute pulmonary edema and heart failure exacerbation patient is presently on Lasix. Patient is on BELLA inhibitor as well -Left ventricular thrombus for which patient is on heparin bridging and was started on Coumadin as well. INR is 1.0, patient will need Lovenox which will increase the Coumadin and patient will be given 7.5 mg today INR check tomorrow -Type 2 diabetes mellitus -Hypertension -Mild hyponatremia secondary to diuresis and as mentioned above Lasix will be held for today and tomorrow Patient Condition at Discharge: Fair Plan - Discharge Summary Discharge Rx Participant: Yes New Discharge Prescriptions: New Aspirin 81 mg PO DAILY #30 chew Ticagrelor [Brilinta] 90 mg PO BID #60 tab Potassium Chloride ER [K-Dur 20] 20 meq PO DAILY #30 tab.er.prt Atorvastatin [Lipitor] 40 mg PO DAILY #30 tab Metoprolol Tartrate [Lopressor] 25 mg PO BID #60 tab Nitroglycerin Sl Tabs [Nitrostat] 0.4 mg SUBLINGUAL Q5M PRN #30 tab PRN Reason: Chest Pain lisinopriL [Zestril] 10 mg PO DAILY #30 tab Warfarin [Coumadin] 6 mg PO DAILY #30 tab Enoxaparin [Lovenox] 60 mg SQ Q12H #14 syringe Insulin Glargine,Hum.rec.anlog [Basaglar Kwikpen U-100] 25 unit SQ HS #1 pen Furosemide [Lasix] 40 mg PO DAILY #90 tab Discharge Medication List Aspirin 81 mg PO DAILY #30 chew 08/02/20 [Rx] Atorvastatin [Lipitor] 40 mg PO DAILY #30 tab 08/02/20 [Rx] Enoxaparin [Lovenox] 60 mg SQ Q12H #14 syringe 08/02/20 [Rx] Insulin Glargine,Hum.rec.anlog [Basaglar Kwikpen U-100] 25 unit SQ HS #1 pen 08/02/20 [Rx] Metoprolol Tartrate [Lopressor] 25 mg PO BID #60 tab 08/02/20 [Rx] Nitroglycerin Sl Tabs [Nitrostat] 0.4 mg SUBLINGUAL Q5M PRN #30 tab 08/02/20 [Rx] Potassium Chloride ER [K-Dur 20] 20 meq PO DAILY #30 tab.er.prt 08/02/20 [Rx] Ticagrelor [Brilinta] 90 mg PO BID #60 tab 08/02/20 [Rx] Warfarin [Coumadin] 6 mg PO DAILY #30 tab 08/02/20 [Rx] lisinopriL [Zestril] 10 mg PO DAILY #30 tab 08/02/20 [Rx] Furosemide [Lasix] 40 mg PO DAILY #90 tab 08/03/20 [Rx] Follow up Appointment(s)/Referral(s): [facility],Card[facility] [NON-STAFF] - (After discharge, you will follow-up with your mail reader. Once you have obtained a prescription for cardiac rehab, please call [phone] to set up an evaluation.) Abner James DO [STAFF PHYSICIAN] - 08/07/20 3:15 pm Sydnie Mensah MD [Primary Care Provider] - 3 Days Ambulatory/Diagnostic Orders: Prothrombin Time INR [LAB.AMB] Time Frame: 3 Days, Location: None Selected Patient Instructions/Handouts: *Surgery [facility] - After Heart Catheterization - [employer] Project Manager Instructions, Heart Healthy Diet (DC), How to Give a Subcutaneous Injection (DC), Vitamin K in Foods (DC), Safe Use of Anticoagulants (DC) Activity/Diet/Wound Care/Special Instructions: NURSEIndigent form is in chart, please send to STACI Yu at d/c. alcohol swabs insulin pen tips Discharge Disposition: HOME SELF-CARE
[2020-08-03 11:52] VITALS: TEMP 97.7
[2020-08-03 12:07] LABS: Glucose,Whole Blood 163 mg/dL (75-99)
[2020-08-03 13:40] VITALS: BMI 23.1
[2020-08-03 17:07] VITALS: BP 153/103; PULSE 87; RESP 16
[2020-08-03] MEDS ORDERED: WARFARIN 7.5 MG TAB PO ONE (18:00)
== END 2020-08-03 16:11 | disposition home or self-care (01) | DRG 246 ==
LOC: EC 21:50 → 2SICU 23:07 → 3SCARD 08-01 21:46
PROVIDERS: ADMIT Hospitalist; ATTEND Hospitalist
PROC: 4A023N7 Measurement of Cardiac Sampling and Pressure, Left Heart, Percutaneous Approach (ICD-10-PCS; principal; 2020-07-30 10:30)
PROC: 027135Z Dilation of Coronary Artery, Two Arteries with Two Drug-eluting Intraluminal Devices, Percutaneous Approach (ICD-10-PCS; principal; 2020-07-30 10:30)
PROC: B2111ZZ Fluoroscopy of Multiple Coronary Arteries using Low Osmolar Contrast (ICD-10-PCS; principal; 2020-07-30 10:30)
DX: I21.4 Non-ST elevation (NSTEMI) myocardial infarction (principal); I50.23 Acute on chronic systolic (congestive) heart failure; I16.1 Hypertensive emergency; E87.1 Hypo-osmolality and hyponatremia; E11.9 Type 2 diabetes mellitus without complications; I11.0 Hypertensive heart disease with heart failure; E87.6 Hypokalemia; I25.5 Ischemic cardiomyopathy; I51.3 Intracardiac thrombosis, not elsewhere classified; T50.2X5A Adverse effect of carbonic-anhydrase inhibitors, benzothiadiazides and other diuretics, initial encounter; Z98.890 Other specified postprocedural states; Z82.49 Family history of ischemic heart disease and other diseases of the circulatory system; Z79.82 Long term (current) use of aspirin; Z79.02 Long term (current) use of antithrombotics/antiplatelets; Z79.899 Other long term (current) drug therapy; Z91.14 Patient's other noncompliance with medication regimen; Z91.19 Patient's noncompliance with other medical treatment and regimen; Z87.891 Personal history of nicotine dependence
CPT/HCPCS: 36415; 71045; 74022; 80048; 80053; 80069; 83036; 83605; 83735; 83880; 84132; 84484; 85025; 85347; 85379; 85610; 85730; 93005; 93306; 93458; 94640; 96365; 96366; 96375; 99291

== ENCOUNTER → 2020-08-06 | Outpatient (CLI) | payer SELFPAY ==
[2020-08-06 19:47] LABS: INR 4.13 (0.90-1.11); Prothrombin Time 41.8 sec (9.9-11.9)
== END | disposition home or self-care (01) ==
LOC: LABWHC1 10:40
PROVIDERS: ATTEND Internal Medicine
DX: Z51.81 Encounter for therapeutic drug level monitoring (principal); Z79.01 Long term (current) use of anticoagulants
CPT/HCPCS: 36415; 85610

== ENCOUNTER → 2020-08-26 | Outpatient (CLI) | payer BC ==
--- NOTE | 2020-08-27 10:13 | XR ---
EXAM TYPE: LUMBAR SPINE X RAY SERIES COMPARISON: NONE HISTORY: Pain TECHNIQUE: 4 views are submitted. FINDINGS: Alignment is anatomic. The pedicles are intact. The transverse processes are intact. There is no s pondylolysis or spondylolisthesis. Hypertrophic and degenerative changes spine sclerosis and a defec t along the anterior margin the superior endplate of L3. IMPRESSION: 1. Multilevel degenerative disc disease most marked at L2-L3 with sclerosis and a defect along the an terior margin of the upper L3 segment. This likely is chronic. Recommend follow-up MRI for further ev aluation..
== END | disposition home or self-care (01) ==
LOC: RADXRMAIN 16:14
PROVIDERS: ATTEND Internal Medicine
DX: M51.36 Other intervertebral disc degeneration, lumbar region (principal)
CPT/HCPCS: 72110

== ENCOUNTER → 2024-08-21 | Outpatient (CLI) | payer MEDICARE ==
[2024-08-21 16:26] LABS: BUN/Creat Ratio 16.13 Ratio (12.00-20.00); Blood Urea Nitrogen 24.2 mg/dL (9.0-27.0); Carbon Dioxide 22.7 mmol/L (21.6-31.8); Chloride 100 mmol/L (96-109); Glucose 304 mg/dL (70-110); Potassium 4.7 mmol/L (3.5-5.5); Sodium 135 mmol/L (135-145)
[2024-08-21 16:27] LABS: ALT 13 U/L (10-49); AST 18 U/L (14-35); Albumin 4.2 g/dL (3.8-4.9); Albumin/Globulin Ratio 1.24 Ratio (1.60-3.17); Alkaline Phosphatase 128 U/L (41-126); Calcium 9.4 mg/dL (8.7-10.3); Globulin 3.4 g/dL (1.6-3.3); Total Bilirubin 0.4 mg/dL (0.3-1.2); Total Protein 7.6 g/dL (6.2-8.2)
== END | disposition home or self-care (01) ==
LOC: LABWHC1 10:50
PROVIDERS: ATTEND Family Medicine
DX: E11.21 Type 2 diabetes mellitus with diabetic nephropathy (principal)
CPT/HCPCS: 36415; 80053; 83036